=== PATIENT | female | born 1940 | race Caucasian/White ===

== ENCOUNTER 2016-10-08 16:08 | Inpatient (IN) ==
[2016-10-08] MEDS ORDERED: 0.9 % Sodium Chloride 1,000 ML IVC ONE (16:13)
--- NOTE | 2016-10-08 16:40 | Emergency Department Note ---
Disposition Clinical Impression: CRISTI (acute kidney injury), Dehydration Disposition: Admitted As Inpatient Condition: Good Referrals: NO,PCP [Primary Care Provider] - Forms: ED Satisfaction Letter Time of Disposition: 17:43 General Adult HPI - General Chief complaint: ED Recheck/Abnormal Lab/Rx Stated complaint: abd labs Time Seen by Provider: 10/08/16 16:10 Source: patient, EMS Limitations: age Nursing Notes Reviewed: Yes Vital Signs Reviewed: Yes - History of Present Illness HPI Narrative: Patient is a 75-year-old female who is at a snf in [facility] house comes in today for weakness. She was seen there yesterday she stated she had a little bit of shortness of breath this has resolved she has just been fatigued she was supposed to be sent to the snf with IV fluids for dehydration and this did not occur. They are upset and did not want to go back to [facility] so they came here. Patient is awake alert pleasant with no acute complaints at this time Pain Scale: 0 Improves with: nothing Worsens with: nothing Associated symptoms: Reports: denies other symptoms Treatments Prior to Arrival: none - Related Data Allergies Allergy/AdvReac Type Severity Reaction Status Date / Time diphenhydramine Allergy See Verified 10/08/16 16:19 [From Benadryl] Comments ibuprofen Allergy See Verified 10/08/16 16:19 Comments morphine Allergy See Verified 10/08/16 16:19 Comments sulfamethoxazole Allergy See Verified 10/08/16 16:19 [From Bactrim] Comments trimethoprim [From Bactrim] Allergy See Verified 10/08/16 16:19 Comments All systems ED: reviewed and negative except as stated. Constitutional: Reports: weakness. Denies: fever, chills Respiratory: Denies: cough Gastrointestinal: Denies: nausea, vomiting, diarrhea Past Medical History - Past Medical History Source: patient, old records reviewed, nursing notes reviewed Medical history: Reports: atrial fibrillation, CVA, DVT, GERD, renal disease, thyroid disease, TIA, other Psychiatric history: Reports: anxiety, depression, other - Social History Smoking Status: Former smoker Alcohol use: Reports: none Drug use: Reports: none Physical Exam - General Limitations: age General appearance: in no apparent distress - Head Head exam: atraumatic, normocephalic, normal inspection - Eye Eye exam: Present: normal appearance, PERRL, EOMI - Expanded Eye Exam Pupils: Left: reactive - ENT ENT exam: normal exam, normal oropharynx, mucous membranes moist - Expanded ENT Exam External ear exam: Present: normal external inspection Mouth exam: Present: normal external inspection Teeth exam: Present: normal inspection Throat exam: Present: normal inspection - Neck Neck exam: Present: normal inspection, full ROM, trachea midline - Chest Chest inspection: Present: normal inspection, symmetric chest wall rise - Respiratory Respiratory exam: Present: normal lung sounds bilaterally - Cardiovascular Cardiovascular exam: Present: regular rate, normal rhythm, normal heart sounds - Abdominal Exam Abdominal exam: Present: soft, Non-Tender. Absent: tenderness, distention, guarding, rebound, rigidity - Extremities Exam Extremities exam: Present: normal inspection, full ROM. Absent: tenderness, pedal edema - Expanded Upper Extremity Exam Shoulder exam: Present: normal inspection, full ROM Arm exam: Present: normal inspection, full ROM Elbow exam: Present: normal inspection, full ROM Forearm/Wrist exam: Present: normal inspection, full ROM Hand exam: Present: normal inspection, full ROM Vascular exam: Normal: capillary refill, radial pulse - Expanded Lower Extremity Exam Hip/Pelvis exam: Present: normal inspection, full ROM Upper leg exam: Present: normal inspection, full ROM Knee exam: Present: normal inspection, full ROM Lower leg exam: Present: normal inspection, full ROM Ankle exam: Present: normal inspection, full ROM Foot/toe exam: Present: normal inspection, full ROM Neurovascular/Tendon exam: Absent: motor deficit, sensory deficit, tendon deficit - Back Exam Back exam: Present: normal inspection, full ROM. Absent: tenderness - Neurological Exam Neurological exam: Present: alert, oriented X3 - Expanded Neurological Exam Patient oriented to: Present: person, place, time Coma Scale Eye Opening: Spontaneous Coma Scale Motor Response: Obeys Commands Coma Scale Verbal Response: Oriented Coma Scale Total: 15 - Psychiatric Psychiatric exam: Present: normal affect, normal mood - Skin Skin exam: Present: warm, dry, intact, normal color Course Vital Signs Temperature 98.4 F 10/08/16 16:10 Pulse Rate 65 10/08/16 16:10 Respiratory Rate 18 10/08/16 16:10 Blood Pressure 145/68 10/08/16 16:10 O2 Sat by Pulse Oximetry 97 10/08/16 16:10 Temperature 98.4 F 10/08/16 16:10 Pulse Rate 64 10/08/16 16:36 Respiratory Rate 18 10/08/16 16:36 Blood Pressure 115/53 10/08/16 16:36 O2 Sat by Pulse Oximetry 99 10/08/16 16:36 Oxygen Delivery Oxygen Delivery Nasal Cannula Medical Decision Making - Medical Records Medical records reviewed: Yes I reviewed the patient's medical records. - Lab Data Lab results reviewed: Yes I reviewed the patient's lab results. Result diagrams: 10/08/16 16:49 10/08/16 16:49 Lab Results 10/08/16 10/08/16 10/08/16 Range/Units 16:49 16:49 16:49 WBC 7.4 (4.3-11.1) K/mcL RBC 5.60 H (3.82-4.97) M/mcL Hgb 15.7 H (11.5-15.4) g/dL Hct 52.3 H (35.3-44.9) % MCV 93.4 (83.0-100.0) fL MCH 28.0 (28.0-33.3) pg MCHC 30.0 L (31.6-35.5) g/dL RDW 20.4 H (11.5-14.5) % Plt Count 152 (140-400) K/mcL MPV 12.6 H (9.4-12.4) fL Immature Gran % 0.7 (0-4) % Seg Neutrophils % 78.7 % Lymphocytes % 10.1 % Monocytes % 7.4 % Eosinophils % 2.4 % Basophils % 0.7 % Neutrophils # 5.8 (1.6-8.9) K/mcL Lymphocytes # 0.8 (0.6-4.6) K/mcL Monocytes # 0.6 (0.0-1.3) K/mcL Eosinophils # 0.2 (0.0-0.6) K/mcL Basophils # 0.1 (0.0-0.2) K/mcL PT 12.7 H (9.4-12.1) Seconds INR 1.2 APTT 32.9 (26.0-36.0) Seconds Sodium 140 (136-145) mEq/L Potassium 4.5 (3.5-4.5) mEq/L Chloride 105 (98-109) mEq/L Carbon Dioxide 23 (19-29) mEq/L BUN 47 H (7-20) mg/dL Creatinine 3.34 H (0.57-1.11) mg/dL Est GFR ( Amer) 16 L (> 60) Est GFR (Non-Af Amer) 13 L (> 60) BUN/Creatinine Ratio 14 (6-26) Glucose 98 (70-99) mg/dL Calculated Osmolality 302 H (280-300) Calcium 8.9 (8.6-10.8) mg/dL Total Bilirubin 1.1 (0.2-1.2) mg/dL AST 23 (5-34) Units/L ALT 14 (0-55) Units/L Alkaline Phosphatase 103 (38-126) Units/L Troponin I (0-0.03) ng/mL Serum Total Protein 8.4 H (6.0-8.3) g/dL Albumin 3.8 (3.5-5.0) g/dL Globulin 4.6 H (2.4-3.5) g/dL Albumin/Globulin Ratio 0.8 L (1.1-2.2) 10/08/ Range/Units 16:49 WBC (4.3-11.1) K/mcL RBC (3.82-4.97) M/mcL Hgb (11.5-15.4) g/dL Hct (35.3-44.9) % MCV (83.0-100.0) fL MCH (28.0-33.3) pg MCHC (31.6-35.5) g/dL RDW (11.5-14.5) % Plt Count (140-400) K/mcL MPV (9.4-12.4) fL Immature Gran % (0-4) % Seg Neutrophils % % Lymphocytes % % Monocytes % % Eosinophils % % Basophils % % Neutrophils # (1.6-8.9) K/mcL Lymphocytes # (0.6-4.6) K/mcL Monocytes # (0.0-1.3) K/mcL Eosinophils # (0.0-0.6) K/mcL Basophils # (0.0-0.2) K/mcL PT (9.4-12.1) Seconds INR APTT (26.0-36.0) Seconds Sodium (136-145) mEq/L Potassium (3.5-4.5) mEq/L Chloride (98-109) mEq/L Carbon Dioxide (19-29) mEq/L BUN (7-20) mg/dL Creatinine (0.57-1.11) mg/dL Est GFR ( Amer) (> 60) Est GFR (Non-Af Amer) (> 60) BUN/Creatinine Ratio (6-26) Glucose (70-99) mg/dL Calculated Osmolality (280-300) Calcium (8.6-10.8) mg/dL Total Bilirubin (0.2-1.2) mg/dL AST (5-34) Units/L ALT (0-55) Units/L Alkaline Phosphatase (38-126) Units/L Troponin I 0.07 H* (0-0.03) ng/mL Serum Total Protein (6.0-8.3) g/dL Albumin (3.5-5.0) g/dL Globulin (2.4-3.5) g/dL Albumin/Globulin Ratio (1.1-2.2) - Radiology Data Radiology results reviewed: Yes I reviewed the patient's radiology results.
[2016-10-08 16:54] LABS: Basophils # 0.1 K/mcL (0.0-0.2); Basophils % 0.7 %; Eosinophils # 0.2 K/mcL (0.0-0.6); Eosinophils % 2.4 %; Hematocrit 52.3 % (35.3-44.9); Hemoglobin 15.7 g/dL (11.5-15.4); Immature Granulocytes % 0.7 % (0-4); Lymphocytes # 0.8 K/mcL (0.6-4.6); Lymphocytes % 10.1 %; Mean Corpuscular Volume 93.4 fL (83.0-100.0); Mean Platelet Volume 12.6 fL (9.4-12.4); Monocytes # 0.6 K/mcL (0.0-1.3); Monocytes % 7.4 %; Neutrophils # 5.8 K/mcL (1.6-8.9); Platelet Count 152 K/mcL (140-400); Red Cell Distribution Width 20.4 % (11.5-14.5); Segmented Neutrophils % 78.7 %
[2016-10-08 16:59] LABS: INR 1.2; Prothrombin Time 12.7 Seconds (9.4-12.1)
[2016-10-08 17:13] LABS: Albumin 3.8 g/dL (3.5-5.0); Albumin/Globulin Ratio 0.8 (1.1-2.2); Bilirubin,Total 1.1 mg/dL (0.2-1.2); Calcium 8.9 mg/dL (8.6-10.8); Globulin 4.6 g/dL (2.4-3.5); Potassium 4.5 mEq/L (3.5-4.5); Total Protein 8.4 g/dL (6.0-8.3)
[2016-10-08 17:33] LABS: Activated Partial Thrombo Time 32.9 Seconds (26.0-36.0)
[2016-10-08] MEDS ORDERED: Aspirin 81 MG TAB.CHEW PO STA (17:55)
[2016-10-09] MEDS: 0.9 % Sodium Chloride 1,000 ML IVC SCH ×4 (00:25→17:28)
[2016-10-09] MEDS ORDERED: Naloxone 0.4 MG/ML INJ IVP PRN (00:48)
--- NOTE | 2016-10-09 01:00 | Internal Med History&Physical ---
Date of Encounter: 10/08/16 Time of Encounter: 23:00 Assessment and Plan (1) CRISTI (acute kidney injury) Current visit: Yes Status: Acute baseline renal function is normal; CRISTI rapidly developed and appears to be secondary to dehyration/poor po intake. Urinalysis and urine lytes remain pending. Will gently hydrate with 125 cc of .9NS/hr after initial bolus. Will hold Lasix and recheck renal function in the a.m. Hold Lisinopril at this time. Renal ultrasound and Nephrology consulted in the event that renal function continues to decline; daytime hospitalist to contact in a.m. (2) Generalized weakness Current visit: Yes Status: Acute Likely secondary to dehydration. Management as per above. Check vitamin b12, folate, TSH, vitamin D levels. PT/OT ordered for further evaluation. (3) Elevated troponin Current visit: Yes Status: Acute No chest pain. ECG reportedly unremarkable, but I cannot locate it. Elevated troponin appears to be secondary to demand ischemia/CRISTI. Will repeat troponin levels until peaked. Echo pending for elevated troponin level and history of CHF. 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 Garcia is a 75 year old female longterm resident with PMH CVA, CHF, R- BKA who presents with generalized weakness x 2-3 weeks. Patient claims that she had symptoms of the flu 2-3 weeks ago but was never treated; she claims that many of her fellow longterm residents were diagnosed with the flu. Ever since then, her appetite has markedly decreased and she has not been eating or drinking much. Had lab work done on 10/03/16 and CRE was .97. Today, CRE is >3. She states she has require assistance to the restroom (is usually able to get herself into a wheelchair and hoist herself on the commode, but lately needs assistance. She denies any focal weakness. Denies any chest pain, shortness of breath or change in urination. She denies any nausea or vomiting. Per nurse, bladder scan revealed only 75mL of urine and urine was dark brown in color. Urinalysis still pending at this time. Past Med Surg Social Fam HX - Past Medical History Medical history: atrial fibrillation, CHF, COPD, CVA, DVT, GERD, renal disease, thyroid disease, TIA, other Psychiatric history: anxiety - Past Surgical History Surgical History: cholecystectomy - Social History Smoking Status: Former smoker Alcohol use: none Drug use: none - Family History Mother Hx Family Cardiac Disorders: Yes (heart attack) Father Hx Family Neurologic Disorders: Yes (stroke) Brother Hx Family Neurologic Disorders: Yes (stroke) Internal Medicine - H&P: Meds 0.9 % Sodium Chloride 1,000 ml IV BID 10/08/16 [History] Acetaminophen [Tylenol] 650 mg PO Q4H PRN 10/08/16 [History] Albuterol Neb [Proventil Neb] 2.5 mg IH Q4HR PRN 10/08/16 [History] Ammonium Lactate 1 appl TP DAILY 10/08/16 [History] Aspirin Enteric Coated [Aspirin EC] 81 mg PO DAILY 10/08/16 [History] Clopidogrel [Plavix] 75 mg PO DAILY 10/08/16 [History] Esomeprazole Magnesium [Nexium] 40 mg PO DAILY 10/08/16 [History] Furosemide [Lasix] 20 mg PO DAILY PRN 10/08/16 [History] Gabapentin [Neurontin] 300 mg PO TID 10/08/16 [History] GuaiFENesin/Dextromethorphan [Tussin Dm Syrup] 10 ml PO Q4H PRN 10/08/16 [ History] Hydraguard 1 appl TP BID 10/08/16 [History] Hydrocortisone 1% CREAM [Cortaid] 1 appl TP BID PRN 10/08/16 [History] Iron Polysaccharide Complex [Ferrex 150] 150 mg PO DAILY 10/08/16 [History] Ketoconazole Shampoo [Nizoral Shampoo] 1 appl TP FR 10/08/16 [History] Levothyroxine [Synthroid] 50 mcg PO 0630 10/08/16 [History] Lisinopril [Zestril] 40 mg PO DAILY 10/08/16 [History] Loperamide HCl [Imodium A-D] 2 - 4 mg PO Q8H PRN MDD 12 mg 10/08/16 [History] Metoprolol XL (24 HR) Succ [Toprol XL] 12.5 mg PO DAILY 10/08/16 [History] Ondansetron HCl [Zofran] 4 mg PO Q6H PRN 10/08/16 [History] Ondansetron ODT [Zofran ODT] 4 mg SL Q4HR PRN 10/08/16 [History] Oxygen 1 each .ROUTE AD 10/08/16 [History] Pravastatin Sodium [Pravachol] 20 mg PO HS 10/08/16 [History] S.boulardii/B.coagulans/Fos [Diff-Stat 471 mg Capsule] 471 mg PO BID 10/08/16 [ History] Sertraline [Zoloft] 25 mg PO DAILY 10/08/16 [History] Sotalol [Betapace] 40 mg PO BID 10/08/16 [History] Tramadol HCl [Ultram] 50 mg PO Q6H PRN 10/08/16 [History] Tramadol HCl [Ultram] 100 mg PO Q6H PRN 10/08/16 [History] Triamcinolone Acet 0.1% CRM [Kenalog] 1 appl TP BID PRN 10/08/16 [History] Allergies diphenhydramine [From Benadryl] Allergy (Verified 10/08/16 16:19) See Comments ibuprofen Allergy (Verified 10/08/16 16:19) See Comments morphine Allergy (Verified 10/08/16 16:19) See Comments sulfamethoxazole [From Bactrim] Allergy (Verified 10/08/16 16:19) See Comments trimethoprim [From Bactrim] Allergy (Verified 10/08/16 16:19) See Comments All Systems PM: A 10-system review of systems was performed and is negative for pertinent findings except as documented above in the HPI. - Constitutional Constitutional: fatigue, weakness, no chills, no fever(s), no falls - EENT Eyes: no blurry vision - Cardiovascular Cardiovascular ROS IM: no chest pain, no dyspnea, no dyspnea on exertion - Respiratory Respiratory: no cough - Gastrointestinal Gastrointestinal: as per HPI, no abdominal pain, no change in bowel habits - Neurological Neurological ROS: as per HPI, no dizziness, no focal weakness, no lack of coordination - Constitutional Vitals: Temp Pulse Resp BP Pulse Ox 97.6 F 64 20 113/75 94 10/08/16 20:10 10/08/16 20:10 10/08/16 20:10 10/08/16 20:10 10/08/16 20:58 General appearance: Present: A&O X 3, pleasant, no acute distress, answers questions appropriately - Head Head exam: Present: atraumatic - Eye Eye exam: Present: normal appearance - ENT ENT exam: Present: mucous membranes dry - Respiratory Respiratory exam: Present: CTAB - Cardiovascular Cardiovascular exam: Present: RRR, +S1, +S2 - GI/Abdominal GI/Abdominal exam: Present: normal bowel sounds, soft. Absent: rebound, tenderness - Extremities Exam Additional comments: R-BKA and trace lower extremity edema - Neurological Exam Neurological exam: Present: alert, oriented X3 Additional comments: strength 5/5 left lower extremities, 5/5 RUE and 4/5 LUE (patient states left upper extremity is chronically weaker, not new) - Psychiatric Psychiatric exam: Present: normal affect, normal mood - Skin Additional comments: venous stasis dermatitis present left lower extremity Internal Med - H&P Results - Labs CBC & Chem 7: 10/08/16 16:49 10/08/16 16:49 Labs: Cardiac Enzymes 10/08/16 Range/Units 23:16 Troponin I 0.07 H* (0-0.03) ng/mL
[2016-10-09] MEDS ORDERED: Triamcinolone Acet 0.1% CRM 15 GM TUBE TP PRN (01:01)
[2016-10-09] MEDS ORDERED: Albuterol 2.5 MG/3 ML NEBULIZER IH PRN (01:01)
[2016-10-09 06:49] LABS: Basophils % 0.6 %; Eosinophils # 0.2 K/mcL (0.0-0.6); Eosinophils % 2.8 %; Hematocrit 47.3 % (35.3-44.9); Immature Granulocytes % 0.6 % (0-4); Lymphocytes # 0.7 K/mcL (0.6-4.6); Lymphocytes % 10.3 %; Mean Corpuscular HGB Conc 29.8 g/dL (31.6-35.5); Mean Corpuscular Volume 93.8 fL (83.0-100.0); Monocytes # 0.6 K/mcL (0.0-1.3); Monocytes % 8.8 %; Platelet Count 120 K/mcL (140-400); Red Blood Count 5.04 M/mcL (3.82-4.97); Red Cell Distribution Width 20.3 % (11.5-14.5); Segmented Neutrophils % 76.9 %
[2016-10-09 06:50] LABS: Hemoglobin 14.1 g/dL (11.5-15.4)
[2016-10-09 07:10] LABS: Albumin 3.3 g/dL (3.5-5.0); Albumin/Globulin Ratio 0.8 (1.1-2.2); Calcium 8.4 mg/dL (8.6-10.8); Chol/HDL Ratio 3.3 (0-4.9); Potassium 4.2 mEq/L (3.5-4.5); Total Protein 7.3 g/dL (6.0-8.3)
[2016-10-09 08:49] LABS: Folate 9.2 ng/mL (7.0-31.4)
[2016-10-09] MEDS: Iron Polysaccharide Complex 150 MG CAPSULE PO SCH (08:56)
[2016-10-09] MEDS: Aspirin Enteric Coated 81 MG Tablet PO SCH (08:57)
[2016-10-09] MEDS: Metoprolol XL (24 HR) Succ 25 MG TAB.ER.24H PO SCH (08:57)
[2016-10-09] MEDS ORDERED: Ammonium Lactate 30 APPL/225 GM BOTTLE TP SCH (09:00)
--- NOTE | 2016-10-09 09:57 | Nephrology Consult Note ---
Date of Encounter: 10/09/16 Time of Encounter: 09:40 Assessment and Plan (1) CRISTI (acute kidney injury) Current Visit: Yes Status: Acute Anuric CRISTI possibly 2/2 to dehydration. Creatinine improved from 3.34 to 2.66 today with IVFs. F.E.Na of 0.24% suggestive of pre-renal cause. Avoid nephrotoxins. Continue IVFs, currently on 0.9% NS @ 125ml/hr. Continue renal protective/supportive management. No indication for acute dialysis at this time. Pending renal US. Pending UA- update: concern for UTI vs contamination. Afebrile, dementia at baseline, no leukocytosis, normotensive, and normal HR. (2) Dehydration Current Visit: Yes Status: Acute See plan above. (3) Generalized weakness Current Visit: Yes Status: Acute Possibly secondary to dehydration. See above plan. (4) Vitamin D deficiency Current Visit: Yes Status: Acute Level found to be low at 5ng/ml. I do not see Vitamin D listed in home medications, would recommendation replacement with ergocalciferol 50,000unit/wk. (5) Hypothyroidism Current Visit: Yes Status: Chronic management per primary medicine service. Qualifiers: Hypothyroidism type: unspecified Qualified Code(s): E03.9 - Hypothyroidism , unspecified History of Present Illness - Reason for Consult Consult date: 10/09/16 Acute Kidney Injury Requesting physician: Gricelda Hooker - Chief Complaint Weakness - History of Present Illness Ms. Garcia is a 75 year old female that presents with ECF, pertinent PMHx CVA, CHF, and R-BKA, who presents with generalized weakness x 2-3 weeks per record. Discussing this with patient she states her memory is poor and she is unsure why she is here. Reviewing the ER report, patient agree currently with prior story of flu like symptoms 2-3 weeks ago and that since her appetite has been less; not eating or drinking much. She notes increased general weakness, requiring assistance to the restroom. Denies any chest pain, shortness of breath or change in urination. She denies any nausea or vomiting. Nephrology consulted for concerns of CRISTI with Cr reported at 0.9 prior to admission, found to be 3.34 on admission. 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 States she is unsure if she uses any NSAIDs ( ibuprofen/motrin, aleve). No tobacco or alcohol use in 10+ years. No previous encounters (inpatient or outpatient) found within system for review. Past Med Surg Social Fam HX - Past Medical History Source: nursing notes reviewed Medical history: atrial fibrillation, CHF, COPD, CVA, DVT, GERD, renal disease, thyroid disease, TIA, other Psychiatric history: anxiety - Past Surgical History Surgical History: cholecystectomy - Social History Smoking Status: Former smoker Alcohol use: none Drug use: none - Family History Mother Hx Family Cardiac Disorders: Yes (heart attack) Father Hx Family Neurologic Disorders: Yes (stroke) Brother Hx Family Neurologic Disorders: Yes (stroke) Medications and Allergies 0.9 % Sodium Chloride 1,000 ml IV BID 10/08/16 [History] Acetaminophen [Tylenol] 650 mg PO Q4H PRN 10/08/16 [History] Albuterol Neb [Proventil Neb] 2.5 mg IH Q4HR PRN 10/08/16 [History] Ammonium Lactate 1 appl TP DAILY 10/08/16 [History] Aspirin Enteric Coated [Aspirin EC] 81 mg PO DAILY 10/08/16 [History] Clopidogrel [Plavix] 75 mg PO DAILY 10/08/16 [History] Esomeprazole Magnesium [Nexium] 40 mg PO DAILY 10/08/16 [History] Furosemide [Lasix] 20 mg PO DAILY PRN 10/08/16 [History] Gabapentin [Neurontin] 300 mg PO TID 10/08/16 [History] GuaiFENesin/Dextromethorphan [Tussin Dm Syrup] 10 ml PO Q4H PRN 10/08/16 [ History] Hydraguard 1 appl TP BID 10/08/16 [History] Hydrocortisone 1% CREAM [Cortaid] 1 appl TP BID PRN 10/08/16 [History] Iron Polysaccharide Complex [Ferrex 150] 150 mg PO DAILY 10/08/16 [History] Ketoconazole Shampoo [Nizoral Shampoo] 1 appl TP FR 10/08/16 [History] Levothyroxine [Synthroid] 50 mcg PO 0630 10/08/16 [History] Lisinopril [Zestril] 40 mg PO DAILY 10/08/16 [History] Loperamide HCl [Imodium A-D] 2 - 4 mg PO Q8H PRN MDD 12 mg 10/08/16 [History] Metoprolol XL (24 HR) Succ [Toprol XL] 12.5 mg PO DAILY 10/08/16 [History] Ondansetron HCl [Zofran] 4 mg PO Q6H PRN 10/08/16 [History] Ondansetron ODT [Zofran ODT] 4 mg SL Q4HR PRN 10/08/16 [History] Oxygen 1 each .ROUTE AD 10/08/16 [History] Pravastatin Sodium [Pravachol] 20 mg PO HS 10/08/16 [History] S.boulardii/B.coagulans/Fos [Diff-Stat 471 mg Capsule] 471 mg PO BID 10/08/16 [ History] Sertraline [Zoloft] 25 mg PO DAILY 10/08/16 [History] Sotalol [Betapace] 40 mg PO BID 10/08/16 [History] Tramadol HCl [Ultram] 50 mg PO Q6H PRN 10/08/16 [History] Tramadol HCl [Ultram] 100 mg PO Q6H PRN 10/08/16 [History] Triamcinolone Acet 0.1% CRM [Kenalog] 1 appl TP BID PRN 10/08/16 [History] Allergies diphenhydramine [From Benadryl] Allergy (Verified 10/08/16 16:19) See Comments ibuprofen Allergy (Verified 10/08/16 16:19) See Comments morphine Allergy (Verified 10/08/16 16:19) See Comments sulfamethoxazole [From Bactrim] Allergy (Verified 10/08/16 16:19) See Comments trimethoprim [From Bactrim] Allergy (Verified 10/08/16 16:19) See Comments Review of Systems ROS unobtainable: due to mental status (unable to recall recent symptoms.) Constitutional: fatigue, weakness, other (decreased appetite) Nose, mouth and throat: no dizziness, no dysphagia Cardiovascular: no chest pain, no dyspnea, no syncope Respiratory: no cough, no dyspnea Gastrointestinal: no abdominal pain Neurological: memory loss, weakness Exam - Vital Signs Vital signs: Initial Vital Signs Temp Pulse Resp BP Pulse Ox 98.4 F 65 18 145/68 97 10/08/16 16:10 10/08/16 16:10 10/08/16 16:10 10/08/16 16:10 10/08/16 16:10 Vital Signs - Last 8 Hours Temp Pulse Resp BP Pulse Ox 10/09/16 08:21 97.9 F 10/09/16 08:11 95.3 F L 10/09/16 07:47 73 20 174/77 94 10/09/16 05:27 62 18 129/66 95 Intake and Output 10/08/16 10/09/16 10/09/16 23:59 07:59 15:59 Intake Total 1120 / 1120 Balance 1120 / 1120 Intake: IV Fluids 1000 / 1000 0.9 % Sodium Chloride 1, 1000 / 1000 000 ML @ 125 mls/hr IVC . Q8H [facility] Rx#:[id number] Oral 120 / 120 Other: Meal Breakfast Percent of Meal Consumed 50% # Voids 1 - General Appearance General appearance: well-developed, appears started age EENT: ATNC, mucous membranes moist, hearing intact, vision intact Neck: supple Respiratory: clear Cardiology: no edema, regular rate, regular rhythm Gastrointestinal: no tenderness, no guarding, no organomegaly Integumentary: no rash, warm and dry Neurologic: no focal deficit Additional Comments: awake and alert Musculoskeletal: no erythema, no cyanosis Additional Comments: right BKA, no signs of infection, no tenderness, no erythema or induration. Psychiatric: mood/affect appropriate, cooperative Results - Lab Results 10/09/16 06:40 10/09/16 06:40 Most recent lab results Calcium 8.4 mg/dL (8.6-10.8) L 10/09/16 06:40 Consult Discharge Plan - Plan Referrals: NO,PCP [Primary Care Provider] - (Patient from [facility] and will follow up with [facility] PCP)
--- NOTE | 2016-10-09 10:14 | Internal Med Progress Note ---
Date of Encounter: 10/09/16 Time of Encounter: 09:45 - Assessment and plan (1) CRISTI (acute kidney injury) Current Visit: Yes Status: Acute Assessment and plan: Likely prerenal secondary to dehydration will continue IV fluids renal function improved from previous day follow up renal US Renal consultation requested. (2) Dehydration Current Visit: Yes Status: Acute Assessment and plan: plan as listed above (3) Generalized weakness Current Visit: Yes Status: Acute Assessment and plan: Likely secondary to decreased PO intake pt tolerating PO intake well at this time will obtain PT eval (4) Elevated troponin Current Visit: Yes Status: Acute Assessment and plan: likely secondary to demand ischemia/CRISTI will trend three serial TNI no EKG changes reported chest pain free will continue to monitor (5) DVT prophylaxis Current Visit: Yes Status: Acute Assessment and plan: Heparin SQ (6) Hypothyroidism Current Visit: Yes Status: Chronic Assessment and plan: continue Levothyroxine Qualifiers: Hypothyroidism type: unspecified Qualified Code(s): E03.9 - Hypothyroidism , unspecified (7) Tenderness of lower extremity Current Visit: Yes Status: Acute Assessment and plan: Will obtain venous doppler to rule out DVT Qualifiers: Laterality: left Qualified Code(s): M79.605 - Pain in left leg - Subjective Interval history: Patient seen and examined at bedside. Resting comfortably in bed and reports of feeling better since her admission. States she had difficulty breathing prior to her arrival to the ER however it has improved at this time. Denies any other discomfort at this time. Noted to have calf tenderness on palpation of left lower extremity. - Constitutional Vitals: Temp Pulse Resp BP Pulse Ox 97.9 F 73 20 174/77 94 10/09/16 08:21 10/09/16 07:47 10/09/16 07:47 10/09/16 07:47 10/09/16 07:47 General appearance: Present: A&O X 3, pleasant, no acute distress, answers questions appropriately - Head Head exam: Present: atraumatic, normocephalic - Eye Eye exam: Present: normal appearance, conjuntiva pink, sclera anicteric - Respiratory Respiratory exam: Present: decreased breath sounds. Absent: respiratory distress, wheezes - Cardiovascular Cardiovascular exam: Present: RRR, +S1, +S2. Absent: diastolic murmur, gallop, rubs, systolic murmur - GI/Abdominal GI/Abdominal exam: Present: normal bowel sounds, soft, no peritoneal signs. Absent: distended, tenderness - Extremities Exam Additional comments: s/p right BKA, mild LLE edema, LLE calf tenderness - Neurological Exam Neurological exam: Present: alert, oriented X3 - Psychiatric Psychiatric exam: Present: normal affect, normal mood Internal Medicine: Result - Labs CBC & Chem 7: 10/09/16 06:40 10/09/16 06:40 Labs: Short CBC 10/09/16 Range/Units 06:40 WBC 6.5 (4.3-11.1) K/mcL Hgb 14.1 D (11.5-15.4) g/dL Hct 47.3 H (35.3-44.9) % Plt Count 120 L (140-400) K/mcL Neutrophils # 5.0 (1.6-8.9) K/mcL BMP 10/09/16 06:40 Sodium 140 Potassium 4.2 Chloride 109 Carbon Dioxide 22 BUN 48 H Creatinine 2.66 H Glucose 98 Calcium 8.4 L Liver Function 10/09/16 Range/Units 06:40 Total Bilirubin 1.0 (0.2-1.2) mg/dL AST 18 (5-34) Units/L ALT 11 (0-55) Units/L Alkaline Phosphatase 88 (38-126) Units/L Albumin 3.3 L (3.5-5.0) g/dL - ABG Interpretation ABG results: PT/INR, D-dimer PT 12.7 Seconds (9.4-12.1) H 10/08/16 16:49 Consult Discharge Plan - Plan Referrals: NO,PCP [Primary Care Provider] -
[2016-10-09] MEDS ORDERED: Perflutren Lipid Microsphere 1.3 ML in 0.9 % Sodium Chloride 8.7 ML IVP ONE (11:36)
--- NOTE | 2016-10-09 12:59 | ECHO - Doppler Report ---
Name: Anastacia Garcia Date of Study: 10/09/2016 Date: 1940 Ht: 66.0 in Medical Record#: [id number] Age: 75 Wt: 167.0 lb Gender: Female BSA: 1.85 Order #: [id number] Location: [facility] Room #: 2A16 Reading Physician: Slim James DO, [facility] Down Filler: Alexis Blanco Ordering Physician: Gricelda Hooker MD Primary Physician: Indications: Congestive heart failure, Shortness of breath Impressions: LVEF 55%. Normal LV chamber size and function. Mild concentric left ventricular hypertrophy. Mild left ventricular diastolic dysfunction. Atypical septal motion of unclear etiology. Grossly, the right ventricle appeared mildly dilated with mildly reduced funtion. Moderately dilated left atrium. Severely dilated right atrium. Moderately calcified aortic valve leaflets. Mild aortic regurgitation. Mild aortic stenosis suggested by Doppler. Mild to moderate tricuspid regurgitation. No pulmonary hypertension. Left Ventricular Wall Motion: Rest Echo Findings All wall segments showed normal motion. Findings: Study Quality * Technically adequate exam. ECG Findings * Normal sinus rhythm. Left Ventricle * LVEF 55%. * Normal LV chamber size and function. * Mild concentric left ventricular hypertrophy. * Mild left ventricular diastolic dysfunction. * Atypical septal motion of unclear etiology. Right Ventricle * Grossly, the right ventricle appeared mildly dilated with mildly reduced funtion. Left Atrium * Moderately dilated left atrium. Right Atrium * Severely dilated right atrium. Interatrial Septum * Interatrial septum not well evaluated. Aortic Valve * Trileaflet aortic valve. * Moderately calcified aortic valve leaflets. * Mild aortic regurgitation. * Mild aortic stenosis suggested by Doppler. Mitral Valve * Moderately thickened mitral valve leaflets. * Moderate posterior mitral annular calcification * Trace mitral regurgitation. * No mitral stenosis. Tricuspid Valve * Normal tricuspid valve structure. * Mild to moderate tricuspid regurgitation. * No pulmonary hypertension. Pulmonic Valve * Pulmonic valve not well visualized. Aorta * Normally sized aortic root. Pericardium * The pericardium appears normal. IVC * Normal IVC dimensions and inspiratory collapse. Pulmonary Artery * Pulmonary artery not well visualized. History Hypertension Contrast: Definity 1.3 ml in 8.7 ml of saline 4 ml. Measurements: BP: 174/ 77 2D Normal Values IVSd: 1.30 cm 0.6 - 1.0 cm LVIDd: 5.18 cm 3.7 - 5.6 cm LVPWd: 1.30 cm 0.6 - 1.1 cm LVIDs: 3.31 cm 1.5 - 3.6 cm AO: 2.50 cm < 4.0 cm LA: 4.40 cm 2.0 - 4.0cm %FS: 36.10 cm >25 % LVOT Diam: 1.85 cm LA volume: 68 Mitral Valve Peak E:.80 m/sec Peak A:1.40 m/sec E/A Ratio:0.6 Peak E' Lat Vini:7.07 cm/s Peak E' Med Vini:5.22 cm/s E/E' Lat Ratio:11.2 E/E' Med Ratio:15.2 LVOT Peak Vini:.96 m/sec Mean Vini:.61 m/sec Peak Grad:4.00 mmHg Mean Grad:2.00 mmHg Aortic Valve Peak Vini:2.13 m/sec Mean Vini:1.31 m/sec Peak Grad:18.00 mmHg Mean Grad:8.50 mmHg Valve Area:1.34 cm2 AI pressure Half-time: 387.00 msec Tricuspid Valve TV Regurg Peak Grad: 16.00mmHg TV Regurg Peak Vini: 1.99m/sec Updated by Slim James DO, EVELINE, LALA MARIO on 10/09/2016 12:52:14 PM electronically signed on 10/09/2016 12:54:12 PM with status of Final Wall Motion Raman: 1=Normal, 2=Hypokinesis, 3=Akinesis, 4=Dyskinesis, 5=Aneurysmal, 6=Hyperkinetic, X=Not Visualized (Blank)=Missing
[2016-10-09 13:22] LABS: Bilirubin,Urine Small (Negative); Blood,Urine Negative (Negative); Color,Urine Dark Yellow (Yellow); Glucose,Urine (UA) Normal (Normal); Ketones,Urine Trace mg/dL (Negative); Leukocyte Esterase,Urine Large (Negative); Nitrite,Urine Negative (Negative); PH,Urine 5.5 pH Units (5.0-8.0); Protein,Urine 30 mg/dL (Neg-Trace); Specific Gravity,Urine 1.024 (1.010-1.025); Urobilinogen,Urine Normal (Normal)
[2016-10-09 13:24] LABS: Hyaline Casts,Urine Few per lpf (None-Few); Squamous Epithelial Cell,Urine Many per lpf (None-Few); WBC,Urine 50-100 per hpf (0-3)
[2016-10-09 13:25] LABS: Clarity,Urine Slightly Hazy (Clear)
[2016-10-09 13:40] LABS: RBC,Urine 0-3 per hpf (0-3); Yeast,Urine Few per hpf (None Seen)
[2016-10-09 13:41] LABS: Bacteria,Urine Moderate per hpf (None-Few)
[2016-10-09] MEDS ORDERED: *HR* Heparin 5,000 UNIT/ML VIAL SQ SCH (18:00)
--- NOTE | 2016-10-09 22:39 | Event Note ---
Date of Encounter: 10/09/16 Time of Encounter: 22:37 called by pt's nurse that doppler ordered earlier came back as positive for DVT in the left lower extremity, we will d/c SC heparin DVT prophylaxis and start weight based therapeutic dose of Lovenox until review by primary team regarding usp anticoagulation options.
[2016-10-10] MEDS: 0.9 % Sodium Chloride 1,000 ML IVC SCH ×3 (00:09→19:57)
[2016-10-10] MEDS: *HR* Enoxaparin 40 MG/0.4 ML SYRINGE SQ SCH ×2 (00:09→11:34)
[2016-10-10 05:53] LABS: Calcium 8.3 mg/dL (8.6-10.8); Magnesium 1.9 mg/dL (1.6-2.6); Phosphorous 2.9 mg/dL (2.3-4.7); Potassium 4.1 mEq/L (3.5-4.5)
[2016-10-10 05:59] LABS: Basophils % 0.5 %; Eosinophils # 0.2 K/mcL (0.0-0.6); Eosinophils % 3.5 %; Hematocrit 43.6 % (35.3-44.9); Hemoglobin 13.3 g/dL (11.5-15.4); Immature Granulocytes % 0.6 % (0-4); Lymphocytes # 0.6 K/mcL (0.6-4.6); Lymphocytes % 10.1 %; Mean Corpuscular HGB Conc 30.5 g/dL (31.6-35.5); Mean Corpuscular Hemoglobin 28.6 pg (28.0-33.3); Mean Corpuscular Volume 93.8 fL (83.0-100.0); Mean Platelet Volume 13.2 fL (9.4-12.4); Monocytes # 0.5 K/mcL (0.0-1.3); Monocytes % 8.3 %; Neutrophils # 4.8 K/mcL (1.6-8.9); Platelet Count 113 K/mcL (140-400); Red Blood Count 4.65 M/mcL (3.82-4.97); Red Cell Distribution Width 20.1 % (11.5-14.5)
[2016-10-10] MEDS: Metoprolol XL (24 HR) Succ 25 MG TAB.ER.24H PO SCH (08:59)
[2016-10-10] MEDS: Aspirin Enteric Coated 81 MG Tablet PO SCH (08:59)
[2016-10-10] MEDS: Iron Polysaccharide Complex 150 MG CAPSULE PO SCH (08:59)
--- NOTE | 2016-10-10 11:28 | Nephrology Progress Note ---
Date of Encounter: 10/10/16 Time of Encounter: 10:50 - Assessment and Plan (1) CRISTI (acute kidney injury) Current Visit: Yes Status: Acute Nonoliguric acute kidney injury, appears prerenal. Creatinine continues to improve. Renal US impression: Atrophic right kidney. Normal left kidney. Volume resuscitation using 0.9 normal saline. Continue to follow a renal protective strategy with avoidance of nephrotoxic medications Strict I's and O's Daily weights Dosing of medications by GFR. (2) Dehydration Current Visit: Yes Status: Acute See plan above. (3) Generalized weakness Current Visit: Yes Status: Acute Possibly 2/2 to dehydration or deconditioning. See plan above. (4) Vitamin D deficiency Current Visit: Yes Status: Acute Level found to be low at 5ng/ml. I do not see Vitamin D listed in home medications, would recommendation replacement with ergocalciferol 50,000unit/wk. (5) Hypothyroidism Current Visit: Yes Status: Chronic management per primary medicine service. Qualifiers: Hypothyroidism type: unspecified Qualified Code(s): E03.9 - Hypothyroidism , unspecified (6) Acute delirium Current Visit: Yes Status: Acute Patient admits to dementia with memory loss at baseline, though patient appeared more delirious today with gazing off and losing focus during questioning. (7) DVT (deep venous thrombosis) Current Visit: Yes Status: Acute management per primary medicine service. Patient started on lovenox. Qualifiers: DVT location: lower extremity Affected thrombotic vein of extremity: unspecified vein of extremity Laterality: left Chronicity: acute Qualified Code(s): I82.402 - Acute embolism and thrombosis of unspecified deep veins of left lower extremity Subjective Principal diagnosis: CRISTI, weakness Interval history: Patient slumped over in bed sleeping, patient easily arousable. I was able to help reposition patient. She states she is tired, but denies any acute distress or aliments. Objective - Vital Signs Vital signs: Vital Signs Temp Pulse Resp BP Pulse Ox 10/10/16 07:12 98.4 F 69 20 165/86 96 10/10/16 03:20 97.5 F L 66 18 153/78 96 10/10/16 00:16 98.1 F 69 17 152/83 94 10/09/16 21:40 98 10/09/16 21:18 97.6 F 67 16 128/60 98 10/09/16 15:46 97.4 F L 66 18 131/75 96 Intake and Output 10/09/16 10/10/16 10/10/16 23:59 07:59 15:59 Intake Total 1365 / 1365 1000 / 1000 100 / 100 Output Total 400 / 400 0 / 0 Balance 1365 / 1365 600 / 600 100 / 100 Intake: IV Fluids 865 / 865 1000 / 1000 0.9 % Sodium Chloride 1, 865 / 865 1000 / 1000 000 ML @ 125 mls/hr IVC . Q8H [facility]CO Rx#:[id number] Oral 500 / 500 100 / 100 Output: Urine 0 / 0 Straight Cath 400 / 400 Other: Meal Breakfast Percent of Meal Consumed 20% Weight 76.8 kg Patient Weight 10/10/16 23:59 Weight 76.8 kg - General Appearance General appearance: Present: well-developed, appears started age, frail EENT: Present: ATNC, mucous membranes moist, hearing intact, vision intact Neck: Present: supple Respiratory: Present: clear Cardiology: Present: no edema, regular rate, regular rhythm Gastrointestinal: Present: no tenderness, no guarding Integumentary: Present: no rash, warm and dry Neurologic: Present: no focal deficit, confused (answers questioning appropriately, poor memory/recall, staring off more today, more easily distracted.) Additional Comments: awake and alert Musculoskeletal: Present: no erythema, no cyanosis Additional Comments: right BKA, no signs of infection, tenderness, erythema, or induration. Psychiatric: Present: mood/affect appropriate, cooperative - Lab 10/10/16 05:30 10/10/16 05:30 Most recent lab results Calcium 8.3 mg/dL (8.6-10.8) L 10/10/16 05:30 Phosphorus 2.9 mg/dL (2.3-4.7) 10/10/16 05:30 Magnesium 1.9 mg/dL (1.6-2.6) 10/10/16 05:30 Urine Creatinine 196 mg/dL 10/09/16 12:40 Urine Sodium 25.0 mEq/L 10/09/16 12:40 Consult Discharge Plan - Plan Referrals: NO,PCP [Primary Care Provider] - (Patient from [facility] and will follow up with [facility] PCP)
--- NOTE | 2016-10-10 13:57 | Venous Imaging Report ---
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 Normal contralateral common femoral vein. Recommendations: Test completed on 10/09/2016 at 10:06:00 pm. Critical findings reported to KARLOS Kaiser by phone at 10:15:00 pm on 10/09/2016 by Kim Nowak. Findings Prior Study: No prior study available for comparison. Lower Extremity Venous Duplex Side Vein Compress Spontaneous Flow Augment Diameter (cm) Depth (cm) Left Distal Iliac None Yes Phasic Yes Left Common Femoral None Yes Phasic Yes Left Superficial Femoral None Yes Phasic Yes Left Popliteal Partial Yes Phasic Yes Left Posterior Tibial Normal Yes Phasic Yes Left Peroneal Normal Yes Phasic Yes Left Saphenofemoral Junction Normal Yes Phasic Yes Left Great Saphenous Normal Yes Phasic Yes Left Lesser Saphenous Normal Yes Phasic Yes Right Common Femoral Normal Yes Phasic Yes Updated by Kody Interiano MD on 10/10/2016 1:51:49 PM electronically signed on 10/10/2016 1:52:09 PM with status of Final
[2016-10-10] MEDS ORDERED: Acetaminophen 325 MG TABLET PO ONE (14:31)
--- NOTE | 2016-10-10 15:05 | Internal Med Progress Note ---
Date of Encounter: 10/10/16 Time of Encounter: 15:03 - Assessment and plan (1) DVT (deep venous thrombosis) Current Visit: Yes Status: Acute Assessment and plan: Acute LLE DVT Started on therapeutic dose Lovenox given improvement in renal function Will closely monitor renal function Hematology consultation requested patient would likely benefit from NOAC agents (Eliquis)-will await hematology input prior to initiation Qualifiers: DVT location: lower extremity Affected thrombotic vein of extremity: unspecified vein of extremity Laterality: left Chronicity: acute Qualified Code(s): I82.402 - Acute embolism and thrombosis of unspecified deep veins of left lower extremity (2) CRISTI (acute kidney injury) Current Visit: Yes Status: Acute Assessment and plan: Likely prerenal secondary to dehydration and urinary outlet obstruction given her urinary retention. Will do a trial of Flomax will continue IV fluids renal function significantly improved from previous day Renal US: Atrophic right kidney and normal left kidney Renal consultation appreciated (3) Dehydration Current Visit: Yes Status: Acute Assessment and plan: plan as listed above (4) Generalized weakness Current Visit: Yes Status: Acute Assessment and plan: Likely secondary to decreased PO intake pt tolerating PO intake well at this time Pt refused Physical therapy eval (5) Elevated troponin Current Visit: Yes Status: Acute Assessment and plan: likely secondary to demand ischemia/CRISTI will trend three serial TNI no EKG changes reported chest pain free will continue to monitor (6) DVT prophylaxis Current Visit: Yes Status: Acute Assessment and plan: anticoagulated with lovenox (7) Hypothyroidism Current Visit: Yes Status: Chronic Assessment and plan: continue Levothyroxine Qualifiers: Hypothyroidism type: unspecified Qualified Code(s): E03.9 - Hypothyroidism , unspecified - Subjective Interval history: Patient seen and examined at bedside. Resting in bed and denies any complains at this time. Reported to have urinary retention requiring straight catheterization. Bladder scan reports of a 200cc post voidal volume. Patient continues to refuse santoyo placement but is in agreement to straight catheterization. - Constitutional Vitals: Temp Pulse Resp BP Pulse Ox 96.8 F L 77 14 195/92 97 10/10/16 14:34 10/10/16 14:34 10/10/16 14:34 10/10/16 14:34 10/10/16 14:34 General appearance: Present: A&O X 3, pleasant, no acute distress, answers questions appropriately - Head Head exam: Present: atraumatic, normocephalic - Eye Eye exam: Present: normal appearance, conjuntiva pink, sclera anicteric - Respiratory Respiratory exam: Present: CTAB. Absent: accessory muscle use, rales, rhonchi, wheezes - Cardiovascular Cardiovascular exam: Present: RRR, +S1, +S2. Absent: diastolic murmur, gallop, rubs, systolic murmur - GI/Abdominal GI/Abdominal exam: Present: normal bowel sounds, soft, no peritoneal signs. Absent: distended, tenderness - Extremities Exam Additional comments: s/p right BKA, mild LLE edema, LLE calf tenderness - Neurological Exam Neurological exam: Present: alert - Psychiatric Psychiatric exam: Present: normal affect, normal mood Internal Medicine: Result - Labs CBC & Chem 7: 10/10/16 05:30 10/10/16 05:30 Labs: Short CBC 10/10/16 Range/Units 05:30 WBC 6.2 (4.3-11.1) K/mcL Hgb 13.3 (11.5-15.4) g/dL Hct 43.6 (35.3-44.9) % Plt Count 113 L (140-400) K/mcL Neutrophils # 4.8 (1.6-8.9) K/mcL BMP 10/10/16 05:30 Sodium 142 Potassium 4.1 Chloride 114 H Carbon Dioxide 18 L BUN 39 H Creatinine 1.38 H Glucose 92 Calcium 8.3 L - ABG Interpretation ABG results: PT/INR, D-dimer PT 12.7 Seconds (9.4-12.1) H 10/08/16 16:49 - Impressions Impressions Retroperitoneum Ultrasound 10/09/16 16:00 IMPRESSION: Atrophic right kidney. Normal left kidney D/ / Matt Haeny MD / Matt Haney MD Interpreting Provider: Matt Haney MD Consult Discharge Plan - Plan Referrals: NO,PCP [Primary Care Provider] - (Patient from [facility] and will follow up with [facility] PCP)
[2016-10-10] MEDS: amLODIPine 5 MG TABLET PO SCH (15:16)
--- NOTE | 2016-10-10 17:46 | Oncology Inp Consult Note ---
Date of Encounter: 10/11/16 Time of Encounter: 17:42 Assessment and Plan (1) CRISTI (acute kidney injury) Status: Acute Assessment and plan: Likely from dehydration. Her renal function is improving. I am not sure of her baseline renal function assay have no comparison from before (2) DVT (deep venous thrombosis) Status: Acute Assessment and plan: Possible DVT elevated d-dimer. But the actual venous Doppler results showed no evidence of DVT. Her risk factors include lack of activity. Currently on Lovenox 80 mg subcutaneous twice a day At this time recommend stopping all anticoagulation will continue to watch her urine If she develops DVT in the future would recommend Elequis 2.5 mg by mouth twice a day. Jerrod Canas communicated her doppler results to Dr. Tariq Qualifiers: Qualified Code(s): I82.402 - Acute embolism and thrombosis of unspecified deep veins of left lower extremity - Data of Consult Requesting Physician: Hue Tariq MD Primary Care Provider: PCP NO - Consult Narrative Reason for consult: DVT History of present illness: Ms. Garcia is a 75 year old [place] [facility] with history of CVA and CHF was hospitalized after dehydration and acute kidney injury. Apparently she had some flulike symptoms before hospitalization Creatinine was 3.341 admission 10/08/2016 and improved to 1.3 with hydration. Further improved to 0.8. Nephrology is involved Left lower extremity tenderness followed by a Doppler showed no evidence of deep or superficial venous thrombosis 10/09/2016. Apparently the preliminary report suggested possible DVT Currently getting Lovenox 1 mg per KG (80 mg) subcutaneous twice a day. We will recommend stopping anticoagulation at this time. D-dimer elevated at 2100 on 10/11/2016 Echocardiogram on 10/09/2016 showed left ventricle ejection fraction 55% normal LV same breast size and function. Septal motion. Left ventricle or diastolic dysfunction. Moderately calcified aortic valve leaflets with mild aortic regurgitation She had a mild troponin peak of 0.07 was considered from demand ischemia. Acute kidney injury may have played a role as well Past Med Surg Social Fam HX - Past Medical History Medical history: atrial fibrillation, CHF, COPD, CVA, DVT, GERD, renal disease, thyroid disease, TIA, other Psychiatric history: anxiety - Past Surgical History Surgical History: cholecystectomy - Social History Smoking Status: Former smoker Alcohol use: none Drug use: none - Family History Mother Hx Family Cardiac Disorders: Yes (heart attack) Father Hx Family Neurologic Disorders: Yes (stroke) Brother Hx Family Neurologic Disorders: Yes (stroke) Medications and Allergies 0.9 % Sodium Chloride 1,000 ml IV BID 10/08/16 [History] Acetaminophen [Tylenol] 650 mg PO Q4H PRN 10/08/16 [History] Albuterol Neb [Proventil Neb] 2.5 mg IH Q4HR PRN 10/08/16 [History] Ammonium Lactate 1 appl TP DAILY 10/08/16 [History] Aspirin Enteric Coated [Aspirin EC] 81 mg PO DAILY 10/08/16 [History] Clopidogrel [Plavix] 75 mg PO DAILY 10/08/16 [History] Esomeprazole Magnesium [Nexium] 40 mg PO DAILY 10/08/16 [History] Furosemide [Lasix] 20 mg PO DAILY PRN 10/08/16 [History] Gabapentin [Neurontin] 300 mg PO TID 10/08/16 [History] GuaiFENesin/Dextromethorphan [Tussin Dm Syrup] 10 ml PO Q4H PRN 10/08/16 [ History] Hydraguard 1 appl TP BID 10/08/16 [History] Hydrocortisone 1% CREAM [Cortaid] 1 appl TP BID PRN 10/08/16 [History] Iron Polysaccharide Complex [Ferrex 150] 150 mg PO DAILY 10/08/16 [History] Ketoconazole Shampoo [Nizoral Shampoo] 1 appl TP FR 10/08/16 [History] Levothyroxine [Synthroid] 50 mcg PO 0630 10/08/16 [History] Lisinopril [Zestril] 40 mg PO DAILY 10/08/16 [History] Loperamide HCl [Imodium A-D] 2 - 4 mg PO Q8H PRN MDD 12 mg 10/08/16 [History] Metoprolol XL (24 HR) Succ [Toprol XL] 12.5 mg PO DAILY 10/08/16 [History] Ondansetron HCl [Zofran] 4 mg PO Q6H PRN 10/08/16 [History] Ondansetron ODT [Zofran ODT] 4 mg SL Q4HR PRN 10/08/16 [History] Oxygen 1 each .ROUTE AD 10/08/16 [History] Pravastatin Sodium [Pravachol] 20 mg PO HS 10/08/16 [History] S.boulardii/B.coagulans/Fos [Diff-Stat 471 mg Capsule] 471 mg PO BID 10/08/16 [ History] Sertraline [Zoloft] 25 mg PO DAILY 10/08/16 [History] Sotalol [Betapace] 40 mg PO BID 10/08/16 [History] Tramadol HCl [Ultram] 50 mg PO Q6H PRN 10/08/16 [History] Tramadol HCl [Ultram] 100 mg PO Q6H PRN 10/08/16 [History] Triamcinolone Acet 0.1% CRM [Kenalog] 1 appl TP BID PRN 10/08/16 [History] Allergies diphenhydramine [From Benadryl] Allergy (Verified 10/08/16 16:19) See Comments ibuprofen Allergy (Verified 10/08/16 16:19) See Comments morphine Allergy (Verified 10/08/16 16:19) See Comments sulfamethoxazole [From Bactrim] Allergy (Verified 10/08/16 16:19) See Comments trimethoprim [From Bactrim] Allergy (Verified 10/08/16 16:19) See Comments Review of systems: GENERAL: Lethargic Mental Status: Affect appropriate for circumstances HEENT: Sclerae anicteric. No mucositis or thrush. No other oral or pharyngeal lesions or erythema. Skin: No rashes or petechiae. No evidence of skin malignancy Lymph nodes: No cervical, supraclavicular, axillary, or inguinal adenopathy. Lungs: Clear to auscultation and percussion bilaterally. Cardiovascular: Regular rate and rhythm. No gallops, murmurs, or rubs. Abdomen: Soft, nontender; no organomegaly or masses palpable. Extremities: Right below-knee amputation Neurologic: Alert, cranial nerves II-XII intact; normal gait; no focal weakness or sensory abnormalities. Oncology - Exam - Constitutional Vitals: Temp Pulse Resp BP Pulse Ox 96.8 F L 77 14 195/92 97 10/10/16 14:34 10/10/16 14:34 10/10/16 14:34 10/10/16 14:34 10/10/16 14:34 Exam: GENERAL: Alert and oriented, well appearing. Your history and Mental Status: Affect appropriate for circumstances HEENT: Sclerae anicteric. No mucositis or thrush. No other oral or pharyngeal lesions or erythema. Skin: No rashes or petechiae. No evidence of skin malignancy Lymph nodes: No cervical, supraclavicular, axillary, or inguinal adenopathy. Lungs: Clear to auscultation and percussion bilaterally. Cardiovascular: Regular rate and rhythm. No gallops, murmurs, or rubs. Abdomen: Soft, nontender; no organomegaly or masses palpable. Extremities: Left lower extremity mild tenderness but no erythema Neurologic: Alert, cranial nerves II-XII intact; normal gait; no focal weakness or sensory abnormalities. Oncology - Results - Labs Labs: Short CBC 10/10/16 Range/Units 05:30 WBC 6.2 (4.3-11.1) K/mcL Hgb 13.3 (11.5-15.4) g/dL Hct 43.6 (35.3-44.9) % Plt Count 113 L (140-400) K/mcL Neutrophils # 4.8 (1.6-8.9) K/mcL BMP 10/10/16 05:30 Sodium 142 Potassium 4.1 Chloride 114 H Carbon Dioxide 18 L BUN 39 H Creatinine 1.38 H Glucose 92 Calcium 8.3 L Consult Discharge Plan - Plan Referrals: NO,PCP [Primary Care Provider] - (Patient from [facility] and [facility])
[2016-10-10] MEDS: Nystatin POWDER 30 GM BOTTLE TP SCH (20:00)
[2016-10-10] MEDS ORDERED: *HR* Enoxaparin 80 MG/0.8 ML SYRINGE SQ SCH (22:37)
[2016-10-11] MEDS: *HR* Enoxaparin 40 MG/0.4 ML SYRINGE SQ SCH (00:01)
[2016-10-11 04:57] LABS: Basophils % 0.7 %; Eosinophils # 0.2 K/mcL (0.0-0.6); Eosinophils % 3.4 %; Hematocrit 42.6 % (35.3-44.9); Immature Granulocytes % 0.7 % (0-4); Lymphocytes # 0.6 K/mcL (0.6-4.6); Lymphocytes % 11.4 %; Mean Corpuscular HGB Conc 30.5 g/dL (31.6-35.5); Mean Corpuscular Hemoglobin 28.4 pg (28.0-33.3); Mean Corpuscular Volume 93.2 fL (83.0-100.0); Mean Platelet Volume 13.8 fL (9.4-12.4); Monocytes # 0.5 K/mcL (0.0-1.3); Monocytes % 8.7 %; Neutrophils # 4.2 K/mcL (1.6-8.9); Platelet Count 109 K/mcL (140-400); Red Blood Count 4.57 M/mcL (3.82-4.97); Red Cell Distribution Width 19.9 % (11.5-14.5); Segmented Neutrophils % 75.1 %
[2016-10-11 05:04] LABS: BUN/Creatinine Ratio 31 (6-26); Calcium 8.5 mg/dL (8.6-10.8); Carbon Dioxide 17 mEq/L (19-29); Chloride 117 mEq/L (98-109); Glucose 83 mg/dL (70-99); Magnesium 1.9 mg/dL (1.6-2.6); Osmolality,Calculated 304 (280-300); Phosphorous 2.6 mg/dL (2.3-4.7); Potassium 3.9 mEq/L (3.5-4.5); Sodium 145 mEq/L (136-145); eGFR For African Americans > 60 (> 60); eGFR For Non-African Americans > 60 (> 60)
[2016-10-11] MEDS: Ketoconazole Shampoo 120 ML BOTTLE TP SCH (05:05)
[2016-10-11 05:21] LABS: Blood Urea Nitrogen 27 mg/dL (7-20)
[2016-10-11 05:38] LABS: Large Platelets Present (Not Present); Platelet Estimate Decreased (Normal)
[2016-10-11 06:32] LABS: INR 1.3; Prothrombin Time 14.4 Seconds (9.4-12.1)
[2016-10-11 06:35] LABS: Activated Partial Thrombo Time 51.4 Seconds (26.0-36.0)
[2016-10-11] MEDS ORDERED: Furosemide 20 MG TABLET PO PRN (08:01)
[2016-10-11] MEDS ORDERED: Ipratropium/Albuterol Neb 3 ML IH ONE (08:51)
[2016-10-11] MEDS: Iron Polysaccharide Complex 150 MG CAPSULE PO SCH (09:11)
[2016-10-11] MEDS: Lisinopril 20 MG TABLET PO SCH ×2 (09:12→09:13)
[2016-10-11] MEDS: Aspirin Enteric Coated 81 MG Tablet PO SCH (09:12)
[2016-10-11] MEDS: Metoprolol XL (24 HR) Succ 25 MG TAB.ER.24H PO SCH (09:12)
[2016-10-11] MEDS: amLODIPine 5 MG TABLET PO SCH (09:12)
[2016-10-11] MEDS: Nystatin POWDER 30 GM BOTTLE TP SCH ×2 (09:18→21:34)
[2016-10-11] MEDS ORDERED: APIXABAN 5 MG TABLET PO SCH ×2 (10:00→13:00)
[2016-10-11] MEDS: *HR* Metoprolol 5 MG/5 ML VIAL IVP PRN ×2 (10:29→17:33)
--- NOTE | 2016-10-11 10:50 | Internal Med Progress Note ---
Date of Encounter: 10/11/16 Time of Encounter: 08:45 - Assessment and plan (1) Acute bleeding Current Visit: Yes Status: Acute Assessment and plan: Noted to have bleeding at the site of blood draw this morning (Lt AC) Unable to stop bleeding despite continuous compression Coag profile within acceptable limit Vascular consultation requested Hold ASA, Plavix, and Eliquis until bleeding resolves Will closely monitor H&H (2) DVT (deep venous thrombosis) Current Visit: Yes Status: Acute Assessment and plan: Acute LLE DVT Hematology consultation appreciated Patient received Lovenox at midnight and given current bleeding, will hold off on starting Eliquis until bleeding stops Qualifiers: DVT location: lower extremity Affected thrombotic vein of extremity: unspecified vein of extremity Laterality: left Chronicity: acute Qualified Code(s): I82.402 - Acute embolism and thrombosis of unspecified deep veins of left lower extremity (3) CRISTI (acute kidney injury) Current Visit: Yes Status: Acute Assessment and plan: Likely prerenal secondary to dehydration and urinary outlet obstruction given her urinary retention. Resolved Patient urinating better after initiation of Flomax, will continue Discontinue IV fluids Renal function back to baseline Renal input appreciated (4) Dehydration Current Visit: Yes Status: Resolved (5) Generalized weakness Current Visit: Yes Status: Acute Assessment and plan: Likely secondary to decreased PO intake pt tolerating PO intake well at this time Pt refused Physical therapy eval (6) Elevated troponin Current Visit: Yes Status: Acute Assessment and plan: likely secondary to demand ischemia/CRISTI will trend three serial TNI no EKG changes reported chest pain free will continue to monitor (7) DVT prophylaxis Current Visit: Yes Status: Acute Assessment and plan: anticoagulated with lovenox Will start Eliquis after bleeding stops (8) Hypothyroidism Current Visit: Yes Status: Chronic Assessment and plan: continue Levothyroxine Qualifiers: Hypothyroidism type: unspecified Qualified Code(s): E03.9 - Hypothyroidism , unspecified (9) Hypertension Current Visit: Yes Status: Acute Assessment and plan: Restarted home medications (Lisinopril 40mg qd, Lasix 20mg qd) continue metoprolol, amlodipine added hydralazine 10mg IV q6h prn SBP>160 will closely monitor and adjust medications as needed Qualifiers: Hypertension type: essential hypertension Qualified Code(s): I10 - Essential (primary) hypertension - Subjective Interval history: Patient seen and examined at bedside. Noted to have persistent bleeding from the left AC site s/p morning blood draws. Patient is noted to have persistent bleeding despite applying constant pressure and pressure dressings. Due to continuous bleeding, vascular surgery is consulted. - Constitutional Vitals: Temp Pulse Resp BP Pulse Ox 97.6 F 94 16 168/78 98 10/11/16 08:20 10/11/16 08:20 10/11/16 09:05 10/11/16 08:20 10/11/16 09:05 General appearance: Present: A&O X 3, pleasant, no acute distress, answers questions appropriately - Head Head exam: Present: atraumatic, normocephalic - Eye Eye exam: Present: normal appearance, conjuntiva pink, sclera anicteric - Respiratory Respiratory exam: Present: CTAB, wheezes. Absent: accessory muscle use, rales, rhonchi - Cardiovascular Cardiovascular exam: Present: RRR, +S1, +S2 - GI/Abdominal GI/Abdominal exam: Present: normal bowel sounds, soft, no peritoneal signs. Absent: distended, tenderness - Extremities Exam Additional comments: s/p right BKA, mild LLE edema, LLE calf tenderness - Neurological Exam Neurological exam: Present: alert Internal Medicine: Result - Labs CBC & Chem 7: 10/11/16 03:53 10/11/16 03:53 Labs: Short CBC 10/11/16 Range/Units 03:53 WBC 5.6 (4.3-11.1) K/mcL Hgb 13.0 (11.5-15.4) g/dL Hct 42.6 (35.3-44.9) % Plt Count 109 L (140-400) K/mcL Neutrophils # 4.2 (1.6-8.9) K/mcL BMP 10/11/16 03:53 Sodium 145 Potassium 3.9 Chloride 117 H Carbon Dioxide 17 L BUN 27 H D Creatinine 0.88 Glucose 83 Calcium 8.5 L - ABG Interpretation ABG results: PT/INR, D-dimer PT 14.4 Seconds (9.4-12.1) H 10/11/16 06:12 D-Dimer 2183 ng/mLFEU (0-500) H 10/11/16 06:12 Consult Discharge Plan - Plan Referrals: NO,PCP [Primary Care Provider] - (Patient from [facility] and will follow up with [facility] PCP)
--- NOTE | 2016-10-11 12:15 | Nephrology Progress Note ---
Date of Encounter: 10/11/16 Time of Encounter: 09:15 - Assessment and Plan (1) CRISTI (acute kidney injury) Current Visit: Yes Status: Acute Nonoliguric acute kidney injury, appears prerenal. Creatinine continues to improve. Renal US impression: Atrophic right kidney. Normal left kidney. Volume resuscitated with 0.9% normal saline. Continue to follow a renal protective strategy with avoidance of nephrotoxic medications Dosing of medications by GFR. Will sign off at this time, but please feel free to contact [facility] if any questions. Thank you. (2) Dehydration Current Visit: Yes Status: Resolved See plan above. (3) Generalized weakness Current Visit: Yes Status: Acute Possibly 2/2 to dehydration or deconditioning. See plan above. (4) Vitamin D deficiency Current Visit: Yes Status: Acute Level found to be low at 5ng/ml. I do not see Vitamin D listed in home medications, would recommendation replacement with ergocalciferol 50,000unit/wk. (5) Hypothyroidism Current Visit: Yes Status: Chronic management per primary medicine service. Qualifiers: Hypothyroidism type: unspecified Qualified Code(s): E03.9 - Hypothyroidism , unspecified (6) Acute delirium Current Visit: Yes Status: Acute Patient admits to dementia with memory loss at baseline, though patient appeared more delirious with gazing off and losing focus during questioning. Subjective Principal diagnosis: CRISTI, weakness Interval history: Issue of continued bleeding after lab draw, controlled with pressure. Patient states she is scared, but has no complaints of chest pain, difficulty in breathing, or discomfort. Patient presents with delirium with baseline dementia. Objective - Vital Signs Vital signs: Vital Signs Temp Pulse Resp BP Pulse Ox 10/11/16 09:05 16 98 10/11/16 08:20 97.6 F 94 18 168/78 92 10/11/16 04:42 98.7 F 85 18 186/92 92 10/10/16 22:57 97.6 F 81 16 139/76 91 10/10/16 20:41 98.1 F 81 16 142/76 94 10/10/16 18:06 190/70 10/10/16 14:34 96.8 F L 77 14 195/92 97 Intake and Output 10/10/16 10/11/16 10/11/16 23:59 07:59 15:59 Intake Total 1040 / 1040 120 / 120 Output Total 0 / 0 Balance 1040 / 1040 120 / 120 Intake: IV Fluids 1000 / 1000 0.9 % Sodium Chloride 1, 1000 / 1000 000 ML @ 100 mls/hr IVC . Q10H [facility] Rx#:[id number] Oral 40 / 40 120 / 120 Output: Urine 0 / 0 Other: # Voids 2 Weight 79.889 kg Patient Weight 10/11/16 23:59 Weight 79.889 kg - General Appearance General appearance: Present: well-developed, appears started age, frail EENT: Present: ATNC, mucous membranes dry, hearing intact, vision intact Neck: Present: supple Respiratory: Present: wheezing Cardiology: Present: no edema, regular rate, regular rhythm Gastrointestinal: Present: normoactive bowel sounds, no tenderness, no guarding Integumentary: Present: no rash, warm and dry Neurologic: Present: no focal deficit Additional Comments: alert and oriented x2 (not to place) Musculoskeletal: Present: no erythema, no cyanosis Additional Comments: right BKA, no signs of infection, tenderness, erythema, or induration. Psychiatric: Present: cooperative - Lab 10/11/16 03:53 10/11/16 03:53 Most recent lab results Calcium 8.5 mg/dL (8.6-10.8) L 10/11/16 03:53 Phosphorus 2.6 mg/dL (2.3-4.7) 10/11/16 03:53 Magnesium 1.9 mg/dL (1.6-2.6) 10/11/16 03:53 Urine Creatinine 196 mg/dL 10/09/16 12:40 Urine Sodium 25.0 mEq/L 10/09/16 12:40 Consult Discharge Plan - Plan Referrals: NO,PCP [Primary Care Provider] - (Patient from [facility] and will follow up with [facility] PCP)
[2016-10-11] MEDS ORDERED: *HR* LORazepam 2 MG/ML VIAL IVP ONE (17:39)
--- NOTE | 2016-10-11 17:39 | Vascular/Endovasc Consult Note ---
Date of Encounter: 08/13/16 Time of Encounter: 11:00 Assessment and Plan (1) Acute bleeding Current Visit: Yes Status: Acute The patient underwent a right upper extremity blood draw today and has had persistent bleeding. Direct pressure and a compression bandage were unable to stop the bleeding. A TR Band has been placed and appears to be hemostatic at this time. Will reduce pressure per protocol and continue to observe for further bleeding. If persistent bleeding occurs, the patient will require exploration and repair of her vessels. Continue to hold anticoagulation at this time. (2) CRISTI (acute kidney injury) Current Visit: Yes Status: Acute (3) Hypertension Current Visit: Yes Status: Chronic Qualifiers: Hypertension type: essential hypertension Qualified Code(s): I10 - Essential (primary) hypertension - History of Present Illness Consult date: 10/11/16 Requesting physician: Hue Tariq Consult reason: right upper extremity bleeding Chief complaint: Right upper extremity bleeding History of present illness: Ms. Garcia is a 75 year old female with a history of hypertension and hyperlipidemia who was admitted with acute kidney injury and generalized weakness. The patient reportedly had a blood draw this morning in the right antecubital fossa. After the procedure, the patient had peristent bleeding from the site. The bleeding was thought to be arterial and despite direct pressure and a pressure bandage, the bleeding persisted. She did receive lovenox prior to the puncture. Vascular surgery was consulted for further evaluation. At the time of examination, the patient is comfortable and alert. She arm pain, chest pain or shortness of breath. Past Med Surg Social Fam HX - Past Medical History Medical history: atrial fibrillation, CHF, COPD, CVA, DVT, GERD, renal disease, thyroid disease, TIA, other Psychiatric history: anxiety - Past Surgical History Surgical History: cholecystectomy - Social History Smoking Status: Former smoker Alcohol use: none Drug use: none - Family History Mother Hx Family Cardiac Disorders: Yes (heart attack) Father Hx Family Neurologic Disorders: Yes (stroke) Brother Hx Family Neurologic Disorders: Yes (stroke) Medications and Allergies 0.9 % Sodium Chloride 1,000 ml IV BID 10/08/16 [History] Acetaminophen [Tylenol] 650 mg PO Q4H PRN 10/08/16 [History] Albuterol Neb [Proventil Neb] 2.5 mg IH Q4HR PRN 10/08/16 [History] Ammonium Lactate 1 appl TP DAILY 10/08/16 [History] Aspirin Enteric Coated [Aspirin EC] 81 mg PO DAILY 10/08/16 [History] Clopidogrel [Plavix] 75 mg PO DAILY 10/08/16 [History] Esomeprazole Magnesium [Nexium] 40 mg PO DAILY 10/08/16 [History] Furosemide [Lasix] 20 mg PO DAILY PRN 10/08/16 [History] Gabapentin [Neurontin] 300 mg PO TID 10/08/16 [History] GuaiFENesin/Dextromethorphan [Tussin Dm Syrup] 10 ml PO Q4H PRN 10/08/16 [ History] Hydraguard 1 appl TP BID 10/08/16 [History] Hydrocortisone 1% CREAM [Cortaid] 1 appl TP BID PRN 10/08/16 [History] Iron Polysaccharide Complex [Ferrex 150] 150 mg PO DAILY 10/08/16 [History] Ketoconazole Shampoo [Nizoral Shampoo] 1 appl TP FR 10/08/16 [History] Levothyroxine [Synthroid] 50 mcg PO 0630 10/08/16 [History] Lisinopril [Zestril] 40 mg PO DAILY 10/08/16 [History] Loperamide HCl [Imodium A-D] 2 - 4 mg PO Q8H PRN MDD 12 mg 10/08/16 [History] Metoprolol XL (24 HR) Succ [Toprol XL] 12.5 mg PO DAILY 10/08/16 [History] Ondansetron HCl [Zofran] 4 mg PO Q6H PRN 10/08/16 [History] Ondansetron ODT [Zofran ODT] 4 mg SL Q4HR PRN 10/08/16 [History] Oxygen 1 each .ROUTE AD 10/08/16 [History] Pravastatin Sodium [Pravachol] 20 mg PO HS 10/08/16 [History] S.boulardii/B.coagulans/Fos [Diff-Stat 471 mg Capsule] 471 mg PO BID 10/08/16 [ History] Sertraline [Zoloft] 25 mg PO DAILY 10/08/16 [History] Sotalol [Betapace] 40 mg PO BID 10/08/16 [History] Tramadol HCl [Ultram] 50 mg PO Q6H PRN 10/08/16 [History] Tramadol HCl [Ultram] 100 mg PO Q6H PRN 10/08/16 [History] Triamcinolone Acet 0.1% CRM [Kenalog] 1 appl TP BID PRN 10/08/16 [History] Allergies diphenhydramine [From Benadryl] Allergy (Verified 10/08/16 16:19) See Comments ibuprofen Allergy (Verified 10/08/16 16:19) See Comments morphine Allergy (Verified 10/08/16 16:19) See Comments sulfamethoxazole [From Bactrim] Allergy (Verified 10/08/16 16:19) See Comments trimethoprim [From Bactrim] Allergy (Verified 10/08/16 16:19) See Comments All Systems Review: A 10-system review of systems was performed and is negative for pertinent findings except as documented above in the HPI. - Constitutional Constitutional: no chills, no fever(s) - Cardiovascular Cardiovascular: no palpitations Exam Vital Signs, Last 4 Hours Temp Pulse Resp BP Pulse Ox 10/11/16 15:17 98.3 F 94 20 181/77 93 General: Present: Conversant, No Apparent Distress HEENT: Present: Atraumatic, Normocephaly, Pupils equal Neck: Absent: JVD, Left Carotid bruit, Right Carotid bruit Cardiac: Present: Reg Rate and Rhythm, Normal S1 and S2 Lungs: Present: Normal Breath Sounds, No Wheeze, Rales, Rhonchi Neuro: Present: Alert and responsive, Motor nerves grossly intact (except LUE 4/ 5 secondary to prior stroke), Sensory nerves grossly intact Abdomen: Present: Soft, Non-tender Vascular: Present: Normal capillary refill, Pulse, normal, Other (ecchymosis at right antecubital fossa, small hematoma noted, no pulsatile mass, TR Band compression device present over bleeding site). Absent: Cyanosis, Edema Skin: Present: No rashes noted on visualized skin Consult Discharge Plan - Plan Referrals: NO,PCP [Primary Care Provider] - (Patient from [facility] and will follow up with [facility] PCP)
[2016-10-11] MEDS: *HR* LORazepam 2 MG/ML VIAL IVP ONE (23:15)
[2016-10-11] MEDS ORDERED: *HR* Morphine 2 MG/ML SYRINGE IV ONE (23:26)
[2016-10-12] MEDS: 0.9 % Sodium Chloride 1,000 ML IVC SCH (01:00)
[2016-10-12] MEDS ORDERED: *HR* LORazepam 2 MG/ML VIAL ONE (04:54)
[2016-10-12] MEDS: *HR* LORazepam 2 MG/ML VIAL IVP ONE (04:58)
[2016-10-12 05:28] LABS: Basophils # 0.1 K/mcL (0.0-0.2); Basophils % 0.5 %; Eosinophils # 0.1 K/mcL (0.0-0.6); Eosinophils % 0.6 %; Hemoglobin 13.4 g/dL (11.5-15.4); Immature Granulocytes % 0.6 % (0-4); Lymphocytes # 0.6 K/mcL (0.6-4.6); Lymphocytes % 5.9 %; Mean Corpuscular HGB Conc 30.5 g/dL (31.6-35.5); Mean Corpuscular Hemoglobin 28.2 pg (28.0-33.3); Mean Corpuscular Volume 92.4 fL (83.0-100.0); Mean Platelet Volume 13.2 fL (9.4-12.4); Monocytes # 0.5 K/mcL (0.0-1.3); Monocytes % 5.2 %; Neutrophils # 8.4 K/mcL (1.6-8.9); Platelet Count 158 K/mcL (140-400); Red Blood Count 4.76 M/mcL (3.82-4.97); Red Cell Distribution Width 19.9 % (11.5-14.5); Segmented Neutrophils % 87.2 %
[2016-10-12 05:47] LABS: BUN/Creatinine Ratio 25 (6-26); Blood Urea Nitrogen 19 mg/dL (7-20); Carbon Dioxide 18 mEq/L (19-29); Chloride 115 mEq/L (98-109); Glucose 100 mg/dL (70-99); Magnesium 1.5 mg/dL (1.6-2.6); Osmolality,Calculated 296 (280-300); Phosphorous 3.3 mg/dL (2.3-4.7); Potassium 4.2 mEq/L (3.5-4.5); Sodium 142 mEq/L (136-145); eGFR For African Americans > 60 (> 60); eGFR For Non-African Americans > 60 (> 60)
[2016-10-12] MEDS ORDERED: Magnesium Sulfate 1 GM in D5% in Water 100 ML IVPB ONE (07:34)
[2016-10-12] MEDS ORDERED: Furosemide 20 MG TABLET PO SCH (09:00)
[2016-10-12] MEDS: Aspirin Enteric Coated 81 MG Tablet PO SCH (09:49)
[2016-10-12] MEDS: amLODIPine 5 MG TABLET PO SCH (09:49)
[2016-10-12] MEDS: Metoprolol XL (24 HR) Succ 25 MG TAB.ER.24H PO SCH (09:50)
[2016-10-12] MEDS: Lisinopril 20 MG TABLET PO SCH (09:53)
[2016-10-12] MEDS: Iron Polysaccharide Complex 150 MG CAPSULE PO SCH (09:53)
[2016-10-12] MEDS: Nystatin POWDER 30 GM BOTTLE TP SCH ×2 (09:59→20:49)
--- NOTE | 2016-10-12 10:14 | Internal Med Progress Note ---
Date of Encounter: 10/12/16 Time of Encounter: 09:35 - Assessment and plan (1) Change in mental state Current Visit: Yes Status: Acute Assessment and plan: Of unclear etiology her respiratory distress appears to be anxiety driven will obtain CXR and UA to r/o infectious etiology contributing to her mental status change also appears to be a sundowning phenomenon, will start low dose Seroquel and avoid Benzos will closely monitor mental status. Qualifiers: Altered mental status type: unspecified Qualified Code(s): R41.82 - Altered mental status, unspecified (2) Acute bleeding Current Visit: Yes Status: Acute Assessment and plan: Resolved Repeat H&H within acceptable range (3) DVT (deep venous thrombosis) Current Visit: Yes Status: Acute Assessment and plan: Official report did not show any LE DVT Anticoagulation discontinued Qualifiers: DVT location: lower extremity Affected thrombotic vein of extremity: unspecified vein of extremity Laterality: left Chronicity: acute Qualified Code(s): I82.402 - Acute embolism and thrombosis of unspecified deep veins of left lower extremity (4) CRISTI (acute kidney injury) Current Visit: Yes Status: Acute Assessment and plan: Resolved Renal function back to baseline restarted home medications discharge pending improvement in respiratory status (5) Dehydration Current Visit: Yes Status: Resolved (6) Generalized weakness Current Visit: Yes Status: Acute Assessment and plan: Likely secondary to decreased PO intake pt tolerating PO intake well at this time Pt refused Physical therapy eval (7) Elevated troponin Current Visit: Yes Status: Acute Assessment and plan: likely secondary to demand ischemia/CRISTI will trend three serial TNI no EKG changes reported chest pain free will continue to monitor (8) DVT prophylaxis Current Visit: Yes Status: Acute Assessment and plan: Heparin sQ (9) Hypothyroidism Current Visit: Yes Status: Chronic Assessment and plan: continue Levothyroxine Qualifiers: Hypothyroidism type: unspecified Qualified Code(s): E03.9 - Hypothyroidism , unspecified (10) Hypertension Current Visit: Yes Status: Acute Assessment and plan: continue home medications (Lisinopril 40mg qd, Lasix 20mg qd) continue metoprolol, amlodipine added hydralazine 10mg IV q6h prn SBP>160 will closely monitor and adjust medications as needed Increased Amlodipine to 10mg PO daily will closely monitor BP Qualifiers: Hypertension type: essential hypertension Qualified Code(s): I10 - Essential (primary) hypertension - Subjective Interval history: Patient seen and examined at bedside. Reported to be severely agitated and anxious overnight resulting in tachypenia and hypoxia. She was given Haldol and morphine and placed on bipap support. This morning patient is confused and refusing bipap support. Will obtain XRAY to rule out PNA or any other etiology other than anxiety causing her respiratory distress. - Constitutional Vitals: Temp Pulse Resp BP Pulse Ox 98.1 F 88 20 166/88 94 10/12/16 08:07 10/12/16 08:07 10/12/16 08:07 10/12/16 08:07 10/12/16 08:07 General appearance: Present: A&O X 1 (oriented to self, confused ), pleasant, no acute distress, answers questions appropriately - Head Head exam: Present: atraumatic, normocephalic - Eye Eye exam: Present: normal appearance, conjuntiva pink, sclera anicteric - Respiratory Respiratory exam: Present: CTAB. Absent: wheezes - Cardiovascular Cardiovascular exam: Present: RRR, +S1, +S2 - GI/Abdominal GI/Abdominal exam: Present: normal bowel sounds, soft. Absent: distended, tenderness - Extremities Exam Additional comments: s/p right BKA, mild LLE edema, LLE calf tenderness - Neurological Exam Neurological exam: Present: alert - Psychiatric Psychiatric exam: Present: agitated, anxious Internal Medicine: Result - Labs CBC & Chem 7: 10/12/16 04:45 10/12/16 04:45 Labs: Short CBC 10/12/16 Range/Units 04:45 WBC 9.6 D (4.3-11.1) K/mcL Hgb 13.4 (11.5-15.4) g/dL Hct 44.0 (35.3-44.9) % Plt Count 158 (140-400) K/mcL Neutrophils # 8.4 (1.6-8.9) K/mcL BMP 10/12/16 04:45 Sodium 142 Potassium 4.2 Chloride 115 H Carbon Dioxide 18 L BUN 19 Creatinine 0.75 Glucose 100 H Calcium 9.0 - ABG Interpretation ABG results: PT/INR, D-dimer PT 14.4 Seconds (9.4-12.1) H 10/11/16 06:12 D-Dimer 2183 ng/mLFEU (0-500) H 10/11/16 06:12 Consult Discharge Plan - Plan Referrals: NO,PCP [Primary Care Provider] - (Patient from [facility] and will follow up with [facility] PCP)
[2016-10-12] MEDS ORDERED: Furosemide 40 MG/4 ML VIAL IVP ONE (12:25)
[2016-10-12 13:29] LABS: Bilirubin,Urine Negative (Negative); Blood,Urine Negative (Negative); Clarity,Urine Clear (Clear); Color,Urine Yellow (Yellow); Glucose,Urine (UA) Normal (Normal); Ketones,Urine Trace mg/dL (Negative); Leukocyte Esterase,Urine Negative (Negative); Nitrite,Urine Negative (Negative); Protein,Urine Negative (Neg-Trace); Specific Gravity,Urine 1.012 (1.010-1.025); Urobilinogen,Urine Normal (Normal)
[2016-10-12] MEDS ORDERED: Haloperidol Lactate 5 MG/ML VIAL IM ONE (15:32)
--- NOTE | 2016-10-12 16:51 | Vascular/Endovas Progress Note ---
Date of Encounter: 10/12/16 Time of Encounter: 13:30 - Assessment and plan (1) Acute bleeding Current Visit: Yes Status: Acute The patient had persistent bleeding from her venipuncture site that did not resolve after several hours yesterday. Inspection of the site today reveals no evidence of further bleeding and no hematoma is present. Will sign-off today. Reconsult if further issues arise. (2) Hypertension Current Visit: Yes Status: Acute Qualifiers: Hypertension type: essential hypertension Qualified Code(s): I10 - Essential (primary) hypertension (3) CRISTI (acute kidney injury) Current Visit: Yes Status: Acute Creatinine within normal limits today. (4) Dementia Current Visit: Yes Status: Chronic Qualifiers: Dementia type: unspecified type Dementia behavioral disturbance: without behavioral disturbance Qualified Code(s): F03.90 - Unspecified dementia without behavioral disturbance - Subjective Interval history: The patient is comfortable without complaints. She denies any arm pain. She had no acute issues overnight. Vital Signs, Last 4 Hours Temp Pulse Resp BP Pulse Ox 10/12/16 15:41 97.4 F L 97 16 131/66 98 - Physical Examination General: Present: No Apparent Distress HEENT: Present: Pupils equal Cardiac: Present: Reg Rate and Rhythm Lungs: Present: Normal Breath Sounds Neuro: Present: Alert and responsive, No focal deficits noted, Motor nerves grossly intact, Sensory nerves grossly intact Vascular: Present: Normal capillary refill, Pulse, normal. Absent: Cyanosis, Edema Abdomen: Present: Soft Skin: Present: No rashes noted on visualized skin, Other (ecchymosis at right antecubital fossa, no significant hematoma) Results 10/13/16 04:53 10/13/16 04:53 Lab Results, Last 24 hours 10/12/16 10/12/16 04:45 04:45 WBC 9.6 D Hgb 13.4 Hct 44.0 Plt Count 158 Sodium 142 Potassium 4.2 Chloride 115 H Carbon Dioxide 18 L BUN 19 Creatinine 0.75 Glucose 100 H Calcium 9.0 Magnesium 1.5 L Consult Discharge Plan - Plan Referrals: NO,PCP [Primary Care Provider] - (Patient from [facility] and will follow up with [facility] PCP)
[2016-10-12] MEDS: *HR* Heparin 5,000 UNIT/ML VIAL SQ SCH (19:04)
[2016-10-12] MEDS ORDERED: Furosemide 20 MG/2 ML VIAL IVP ONE (20:00)
[2016-10-12] MEDS ORDERED: PHENobarbital 65 MG/ML VIAL IVP STA (21:10)
[2016-10-12] MEDS: *HR* Metoprolol 5 MG/5 ML VIAL IVP PRN (21:32)
[2016-10-13] MEDS: Ipratropium/Albuterol Neb 3 ML IH PRN ×2 (03:48→20:13)
[2016-10-13] MEDS ORDERED: PHENOBARBITAL IVPB STA (04:03)
[2016-10-13] MEDS ORDERED: Furosemide 20 MG/2 ML VIAL IVP ONE ×3 (04:15→06:55)
[2016-10-13] MEDS ORDERED: *HR* LORazepam 2 MG/ML VIAL ONE (04:28)
[2016-10-13] MEDS ORDERED: *HR* LORazepam 2 MG/ML VIAL IVP ONE ×4 (04:33→21:01)
[2016-10-13] MEDS ORDERED: PHENobarbital 65 MG/ML VIAL IVP ONE (04:40)
[2016-10-13 05:14] LABS: Basophils % 0.4 %; Eosinophils # 0.2 K/mcL (0.0-0.6); Eosinophils % 1.8 %; Hematocrit 38.7 % (35.3-44.9); Hemoglobin 12.2 g/dL (11.5-15.4); Immature Granulocytes % 0.4 % (0-4); Lymphocytes # 0.6 K/mcL (0.6-4.6); Lymphocytes % 6.1 %; Mean Corpuscular HGB Conc 31.5 g/dL (31.6-35.5); Mean Corpuscular Hemoglobin 28.5 pg (28.0-33.3); Mean Corpuscular Volume 90.4 fL (83.0-100.0); Mean Platelet Volume 13.2 fL (9.4-12.4); Monocytes # 0.6 K/mcL (0.0-1.3); Monocytes % 6.3 %; Neutrophils # 7.6 K/mcL (1.6-8.9); Platelet Count 139 K/mcL (140-400); Red Blood Count 4.28 M/mcL (3.82-4.97); Red Cell Distribution Width 19.4 % (11.5-14.5)
[2016-10-13 05:26] LABS: BUN/Creatinine Ratio 21 (6-26); Blood Urea Nitrogen 16 mg/dL (7-20); Calcium 8.8 mg/dL (8.6-10.8); Carbon Dioxide 22 mEq/L (19-29); Chloride 109 mEq/L (98-109); Glucose 99 mg/dL (70-99); Magnesium 1.3 mg/dL (1.6-2.6); Osmolality,Calculated 299 (280-300); Phosphorous 3.6 mg/dL (2.3-4.7); Potassium 3.5 mEq/L (3.5-4.5); Sodium 144 mEq/L (136-145); eGFR For African Americans > 60 (> 60); eGFR For Non-African Americans > 60 (> 60)
[2016-10-13] MEDS: *HR* Heparin 5,000 UNIT/ML VIAL SQ SCH ×2 (06:04→17:15)
[2016-10-13] MEDS ORDERED: Magnesium Sulfate 2 GM in D5% in Water 100 ML IVPB ONE ×2 (06:56→07:25)
[2016-10-13] MEDS ORDERED: Valproic Acid 250 MG CAPSULE PO SCH (08:00)
[2016-10-13] MEDS ORDERED: Furosemide 40 MG/4 ML VIAL IVP SCH (09:00)
[2016-10-13] MEDS ORDERED: Furosemide 20 MG TABLET PO SCH (09:00)
[2016-10-13] MEDS: Piperacillin/Tazobactam 3.375 GM in D5% in Water (Mini-Bag+) 100 ML IVPB SCH ×3 (09:13→23:27)
--- NOTE | 2016-10-13 12:08 | Internal Med Progress Note ---
Date of Encounter: 10/13/16 Time of Encounter: 12:04 - Assessment and plan (1) Acute respiratory distress Current Visit: Yes Status: Acute Assessment and plan: Likely Secondary to Volume overload and underlying PNA will continue NRB support continue diuretic and IV abx monitor O2 saturation patient's respiratory status also appears to be anxiety driven will closely monitor respiratory status (2) Pneumonia Current Visit: Yes Status: Acute Assessment and plan: [place] from [place] will treat as HCAP f/u blood cultures de-escalate therapy as per cultures pt is afebrile and no leukocytosis reported however given worsening respiratory status and given CXR findings, will treat with empiric abx Qualifiers: Pneumonia type: due to unspecified organism Laterality: right Lung location: lower lobe of lung Qualified Code(s): J18.1 - Lobar pneumonia, unspecified organism (3) Change in mental state Current Visit: Yes Status: Acute Assessment and plan: Of unclear etiology can be secondary to underlying PNA will treat with empiric IV abx also appears to be a sundowning phenomenon, will increase Seroquel dose and try to avoid Benzos will closely monitor mental status. Qualifiers: Altered mental status type: unspecified Qualified Code(s): R41.82 - Altered mental status, unspecified (4) Acute bleeding Current Visit: Yes Status: Acute Assessment and plan: Resolved Repeat H&H within acceptable range (5) DVT (deep venous thrombosis) Current Visit: Yes Status: Acute Assessment and plan: Official report did not show any LE DVT Anticoagulation discontinued Qualifiers: DVT location: lower extremity Affected thrombotic vein of extremity: unspecified vein of extremity Laterality: left Chronicity: acute Qualified Code(s): I82.402 - Acute embolism and thrombosis of unspecified deep veins of left lower extremity (6) CRISTI (acute kidney injury) Current Visit: Yes Status: Acute Assessment and plan: Resolved Renal function back to baseline continue home medications (7) Dehydration Current Visit: Yes Status: Resolved Assessment and plan: plan as listed above (8) Generalized weakness Current Visit: Yes Status: Chronic (9) DVT prophylaxis Current Visit: Yes Status: Acute Assessment and plan: Heparin sQ (10) Hypothyroidism Current Visit: Yes Status: Chronic Assessment and plan: continue Levothyroxine Qualifiers: Hypothyroidism type: unspecified Qualified Code(s): E03.9 - Hypothyroidism , unspecified (11) Hypertension Current Visit: Yes Status: Acute Assessment and plan: continue home medications (Lisinopril 40mg qd, Lasix 20mg qd) continue metoprolol, amlodipine hydralazine 10mg IV q6h prn SBP>160 will closely monitor and adjust medications as needed continue Amlodipine to 10mg PO daily will closely monitor BP Qualifiers: Hypertension type: essential hypertension Qualified Code(s): I10 - Essential (primary) hypertension (12) Hypomagnesemia Current Visit: Yes Status: Acute Assessment and plan: Mg supplemented continue to monitor electrolytes and replace as needed - Subjective Interval history: Patient seen and examined with daughter present at bedside. Patient reported of being severely agitated and hypoxic overnight, requiring numerous doses of Ativan and diuretic support. Patient's repeat CXR shows infiltrates concerning for pneumonia. It is noted that patient is saturating well at rest however becomes hypoxic and tachypeneic when agitated. Currently sleeping but easily arousable. Remains confused. - Constitutional Vitals: Temp Pulse Resp BP Pulse Ox 98.0 F 90 18 154/66 94 10/13/16 11:39 10/13/16 11:39 10/13/16 11:39 10/13/16 11:39 10/13/16 11:39 General appearance: Present: A&O X 1 (oriented to self, confused ), pleasant, no acute distress, answers questions appropriately - Head Head exam: Present: atraumatic, normocephalic - Eye Eye exam: Present: conjuntiva pink, sclera anicteric - Respiratory Respiratory exam: Present: decreased breath sounds. Absent: wheezes, tachypnea - Cardiovascular Cardiovascular exam: Present: RRR, +S1, +S2. Absent: diastolic murmur, gallop, rubs, systolic murmur - GI/Abdominal GI/Abdominal exam: Present: normal bowel sounds, soft, no peritoneal signs. Absent: distended, tenderness - Extremities Exam Extremities exam: Absent: calf tenderness Additional comments: s/p right BKA, mild LLE edema Internal Medicine: Result - Labs CBC & Chem 7: 10/13/16 04:53 10/13/16 04:53 Labs: Short CBC 10/13/16 Range/Units 04:53 WBC 9.0 (4.3-11.1) K/mcL Hgb 12.2 (11.5-15.4) g/dL Hct 38.7 (35.3-44.9) % Plt Count 139 L (140-400) K/mcL Neutrophils # 7.6 (1.6-8.9) K/mcL BMP 10/13/16 04:53 Sodium 144 Potassium 3.5 Chloride 109 Carbon Dioxide 22 BUN 16 Creatinine 0.77 Glucose 99 Calcium 8.8 Urine 10/12/16 Range/Units 13:09 Urine Color Yellow (Yellow) Urine Clarity Clear (Clear) Urine pH 6.0 (5.0-8.0) pH Units Ur Specific [place] 1.012 (1.010-1.025) Urine Protein Negative (Neg-Trace) mg/dL Urine Glucose (UA) Normal (Normal) mg/dL - ABG Interpretation ABG results: PT/INR, D-dimer PT 14.4 Seconds (9.4-12.1) H 10/11/16 06:12 D-Dimer 2183 ng/mLFEU (0-500) H 10/11/16 06:12 - Impressions Impressions Chest X-Ray 10/13/16 04:07 IMPRESSION: Improved right lower lobe infiltrate. Persistent increased interstitial markings and cardiomegaly. D/ / 10/13/2016 07:54:52 Nidhi Olvera MD / [facility] Interpreting Provider: Nidhi Olvera MD Consult Discharge Plan - Plan Referrals: NO,PCP [Primary Care Provider] - (Patient from [facility] and will follow up with [facility] PCP)
[2016-10-13] MEDS: Lisinopril 20 MG TABLET PO SCH (12:43)
[2016-10-13] MEDS: Aspirin Enteric Coated 81 MG Tablet PO SCH (12:43)
[2016-10-13] MEDS: Metoprolol XL (24 HR) Succ 25 MG TAB.ER.24H PO SCH (12:43)
[2016-10-13] MEDS: Iron Polysaccharide Complex 150 MG CAPSULE PO SCH (12:43)
[2016-10-13] MEDS: Nystatin POWDER 30 GM BOTTLE TP SCH ×2 (12:44→23:27)
[2016-10-13] MEDS: amLODIPine 5 MG TABLET PO SCH (12:44)
[2016-10-13] MEDS: Vancomycin 1,250 MG in D5% in Water 250 ML IVPB SCH (14:08)
[2016-10-13] MEDS: Furosemide 40 MG/4 ML VIAL IVP SCH (16:24)
[2016-10-14] MEDS ORDERED: *HR* LORazepam 2 MG/ML VIAL IVP ONE (00:12)
[2016-10-14 03:41] LABS: Basophils # 0.1 K/mcL (0.0-0.2); Basophils % 0.5 %; Eosinophils # 0.4 K/mcL (0.0-0.6); Eosinophils % 4.6 %; Hematocrit 40.8 % (35.3-44.9); Hemoglobin 12.9 g/dL (11.5-15.4); Immature Granulocytes % 0.4 % (0-4); Lymphocytes # 0.7 K/mcL (0.6-4.6); Lymphocytes % 7.2 %; Mean Corpuscular HGB Conc 31.6 g/dL (31.6-35.5); Mean Corpuscular Hemoglobin 27.9 pg (28.0-33.3); Mean Corpuscular Volume 88.3 fL (83.0-100.0); Mean Platelet Volume 12.6 fL (9.4-12.4); Monocytes % 10.3 %; Neutrophils # 7.2 K/mcL (1.6-8.9); Platelet Count 142 K/mcL (140-400); Red Blood Count 4.62 M/mcL (3.82-4.97); Red Cell Distribution Width 19.2 % (11.5-14.5)
[2016-10-14 04:01] LABS: BUN/Creatinine Ratio 16 (6-26); Blood Urea Nitrogen 12 mg/dL (7-20); Calcium 8.3 mg/dL (8.6-10.8); Carbon Dioxide 30 mEq/L (19-29); Chloride 99 mEq/L (98-109); Glucose 92 mg/dL (70-99); Magnesium 1.2 mg/dL (1.6-2.6); Osmolality,Calculated 291 (280-300); Phosphorous 3.4 mg/dL (2.3-4.7); Potassium 2.8 mEq/L (3.5-4.5); Sodium 141 mEq/L (136-145); eGFR For African Americans > 60 (> 60); eGFR For Non-African Americans > 60 (> 60)
[2016-10-14] MEDS: *HR* Heparin 5,000 UNIT/ML VIAL SQ SCH ×2 (05:20→18:44)
[2016-10-14] MEDS ORDERED: Potassium Chloride 20 MEQ, Lidocaine 1% 2 ML in D5% in Water 250 ML IVPB ONE (07:38)
[2016-10-14] MEDS ORDERED: Potassium Chloride 40 MEQ, Lidocaine 1% 2 ML in D5% in Water 500 ML IVPB ONE (07:38)
[2016-10-14] MEDS ORDERED: Magnesium Sulfate 2 GM in D5% in Water 100 ML IVPB ONE (07:39)
[2016-10-14] MEDS: Furosemide 40 MG/4 ML VIAL IVP SCH (09:18)
[2016-10-14] MEDS: Metoprolol XL (24 HR) Succ 25 MG TAB.ER.24H PO SCH (09:21)
[2016-10-14] MEDS: Aspirin Enteric Coated 81 MG Tablet PO SCH (09:21)
[2016-10-14] MEDS: amLODIPine 5 MG TABLET PO SCH (09:22)
[2016-10-14] MEDS: Nystatin POWDER 30 GM BOTTLE TP SCH (09:22)
[2016-10-14] MEDS: Lisinopril 20 MG TABLET PO SCH (09:22)
[2016-10-14] MEDS: Iron Polysaccharide Complex 150 MG CAPSULE PO SCH (09:23)
[2016-10-14] MEDS: Piperacillin/Tazobactam 3.375 GM in D5% in Water (Mini-Bag+) 100 ML IVPB SCH ×2 (11:18→18:44)
--- NOTE | 2016-10-14 11:30 | Internal Med Progress Note ---
Date of Encounter: 10/14/16 Time of Encounter: 09:25 - Assessment and plan (1) Acute respiratory distress Current Visit: Yes Status: Acute Assessment and plan: Likely Secondary to Volume overload and underlying PNA will continue NRB support continue diuretic and IV abx monitor O2 saturation patient's respiratory status also appears to be anxiety driven will closely monitor respiratory status CTA chest negative for PE and improvement in pleural effusions Will continue IV abx for five days Patient has reported history of COPD and give clinical exam findings of wheezing , will empirically treat with IV steroids and bronchodilator support (2) Pneumonia Current Visit: Yes Status: Acute Assessment and plan: Pt from [place] will treat as HCAP f/u blood cultures de-escalate therapy as per cultures pt is afebrile and no leukocytosis reported however given worsening respiratory status and given CXR findings, will treat with empiric abx Qualifiers: Pneumonia type: due to unspecified organism Laterality: right Lung location: lower lobe of lung Qualified Code(s): J18.1 - Lobar pneumonia, unspecified organism (3) Change in mental state Current Visit: Yes Status: Acute Assessment and plan: Of unclear etiology can be secondary to underlying PNA will treat with empiric IV abx also appears to be a sundowning phenomenon, continue Seroquel dose and try to avoid Benzos will closely monitor mental status. Qualifiers: Altered mental status type: unspecified Qualified Code(s): R41.82 - Altered mental status, unspecified (4) Acute bleeding Current Visit: Yes Status: Acute Assessment and plan: Resolved Repeat H&H within acceptable range (5) DVT (deep venous thrombosis) Current Visit: Yes Status: Acute Assessment and plan: Official report did not show any LE DVT Anticoagulation discontinued Qualifiers: DVT location: lower extremity Affected thrombotic vein of extremity: unspecified vein of extremity Laterality: left Chronicity: acute Qualified Code(s): I82.402 - Acute embolism and thrombosis of unspecified deep veins of left lower extremity (6) CRISTI (acute kidney injury) Current Visit: Yes Status: Acute Assessment and plan: Resolved Renal function back to baseline continue home medications (7) Dehydration Current Visit: Yes Status: Resolved (8) Generalized weakness Current Visit: Yes Status: Chronic (9) DVT prophylaxis Current Visit: Yes Status: Acute Assessment and plan: Heparin sQ (10) Hypothyroidism Current Visit: Yes Status: Chronic Qualifiers: Hypothyroidism type: unspecified Qualified Code(s): E03.9 - Hypothyroidism , unspecified (11) Hypertension Current Visit: Yes Status: Acute Assessment and plan: BP within acceptable range continue home medications Qualifiers: Hypertension type: essential hypertension Qualified Code(s): I10 - Essential (primary) hypertension (12) Hypomagnesemia Current Visit: Yes Status: Acute Assessment and plan: Mg supplemented continue to monitor electrolytes and replace as needed (13) Hypokalemia Current Visit: Yes Status: Acute Assessment and plan: K supplemented continue to monitor electrolytes and replace as needed - Subjective Interval history: Patient seen and examined with sister present at bedside. Patient continues to remain agitated overnight despite seroquel therapy and requiring IV doses of Ativan. Given her respiratory status, there was a concern for acute PE for which CTA chest was done. CTA chest was negative for PE and there is improvement in her bilateral pleural effusions and no reported pulmonary edema on CTA chest. Patient is currently saturating well on NRB and HR within acceptable range. Mental status somnolent due to ativan but arousable and oriented to self and family. - Constitutional Vitals: Temp Pulse Resp BP Pulse Ox 98.1 F 85 17 105/60 93 10/14/16 10:51 10/14/16 10:51 10/14/16 10:51 10/14/16 10:51 10/14/16 10:51 General appearance: Present: A&O X 1 (oriented to self, confused ), pleasant, no acute distress, answers questions appropriately - Head Head exam: Present: atraumatic, normocephalic - Eye Eye exam: Present: normal appearance, conjuntiva pink, sclera anicteric - Respiratory Respiratory exam: Present: decreased breath sounds, wheezes (b/l expiratory wheezing). Absent: respiratory distress - Cardiovascular Cardiovascular exam: Present: RRR, +S1, +S2 - GI/Abdominal GI/Abdominal exam: Present: normal bowel sounds, soft. Absent: distended, tenderness - Extremities Exam Extremities exam: Present: calf tenderness, warm, radial pulses palpable and symetrical. Absent: pedal edema Additional comments: s/p Rt BKA Internal Medicine: Result - Labs CBC & Chem 7: 10/14/16 03:22 10/14/16 03:22 Labs: Short CBC 10/14/16 Range/Units 03:22 WBC 9.3 (4.3-11.1) K/mcL Hgb 12.9 (11.5-15.4) g/dL Hct 40.8 (35.3-44.9) % Plt Count 142 (140-400) K/mcL Neutrophils # 7.2 (1.6-8.9) K/mcL BMP 10/14/16 03:22 Sodium 141 Potassium 2.8 L Chloride 99 Carbon Dioxide 30 H BUN 12 Creatinine 0.74 Glucose 92 Calcium 8.3 L - ABG Interpretation ABG results: PT/INR, D-dimer PT 14.4 Seconds (9.4-12.1) H 10/11/16 06:12 D-Dimer 2183 ng/mLFEU (0-500) H 10/11/16 06:12 - Impressions Impressions Chest X-Ray 10/13/16 04:07 IMPRESSION: Improved right lower lobe infiltrate. Persistent increased interstitial markings and cardiomegaly. D/ / 10/13/2016 07:54:52 Nidhi Olvera MD / [facility] [place] Interpreting Provider: Nidhi Olvera MD Chest X-Ray 10/14/16 07:00 IMPRESSION: Shifting or increasing left pleural effusion with increasing left basilar atelectasis. Persistent bilateral interstitial infiltrates/edema. D/ / 10/14/2016 08:05:43 Herber Hoffmann MD / [facility] Interpreting Provider: Herber Hoffmann MD Chest CTA 10/14/16 08:59 IMPRESSION: 1. No acute pulmonary emboli, aortic dissection or aneurysm. Severe motion artifact is however quite limiting. 2. Moderate bibasilar atelectasis and trace pleural effusions 3. Scattered mediastinal adenopathy possibly reactive but indeterminate. D/ / Georgi Shields MD / Georgi Shields MD Interpreting Provider: Georgi Shields MD Consult Discharge Plan - Plan Referrals: NO,PCP [Primary Care Provider] - (Patient from [facility] and will follow up with [facility] PCP)
[2016-10-14] MEDS: methylPREDNISolone 125 MG/2 ML VIAL IVP SCH ×2 (12:21→18:44)
[2016-10-14] MEDS: Vancomycin 1,250 MG in D5% in Water 250 ML IVPB SCH ×2 (15:51→16:24)
[2016-10-14] MEDS: Ipratropium/Albuterol Neb 3 ML IH SCH ×3 (17:27→20:49)
[2016-10-15] MEDS ORDERED: Melatonin 3 MG TABLET PO STA (00:46)
[2016-10-15] MEDS: Piperacillin/Tazobactam 3.375 GM in D5% in Water (Mini-Bag+) 100 ML IVPB SCH ×3 (02:53→20:25)
[2016-10-15] MEDS: Ipratropium/Albuterol Neb 3 ML IH SCH ×6 (04:06→20:20)
[2016-10-15 04:45] LABS: Basophils % 0.2 %; Hematocrit 42.1 % (35.3-44.9); Hemoglobin 13.3 g/dL (11.5-15.4); Immature Granulocytes % 1.2 % (0-4); Lymphocytes # 0.4 K/mcL (0.6-4.6); Lymphocytes % 8.5 %; Mean Corpuscular HGB Conc 31.6 g/dL (31.6-35.5); Mean Corpuscular Hemoglobin 27.7 pg (28.0-33.3); Mean Corpuscular Volume 87.7 fL (83.0-100.0); Mean Platelet Volume 12.1 fL (9.4-12.4); Monocytes # 0.1 K/mcL (0.0-1.3); Monocytes % 2.4 %; Neutrophils # 3.7 K/mcL (1.6-8.9); Platelet Count 126 K/mcL (140-400); Red Cell Distribution Width 18.3 % (11.5-14.5); Segmented Neutrophils % 87.7 %
[2016-10-15] MEDS: Nystatin POWDER 30 GM BOTTLE TP SCH ×4 (04:58→20:53)
[2016-10-15 05:07] LABS: BUN/Creatinine Ratio 17 (6-26); Blood Urea Nitrogen 14 mg/dL (7-20); Calcium 8.5 mg/dL (8.6-10.8); Carbon Dioxide 30 mEq/L (19-29); Chloride 96 mEq/L (98-109); Glucose 136 mg/dL (70-99); Osmolality,Calculated 287 (280-300); Phosphorous 3.5 mg/dL (2.3-4.7); Potassium 3.4 mEq/L (3.5-4.5); Sodium 137 mEq/L (136-145); eGFR For African Americans > 60 (> 60); eGFR For Non-African Americans > 60 (> 60)
[2016-10-15] MEDS: *HR* Heparin 5,000 UNIT/ML VIAL SQ SCH ×2 (05:45→17:06)
[2016-10-15] MEDS: methylPREDNISolone 125 MG/2 ML VIAL IVP SCH ×2 (05:50→17:04)
[2016-10-15] MEDS: amLODIPine 5 MG TABLET PO SCH (07:58)
[2016-10-15] MEDS: Metoprolol XL (24 HR) Succ 25 MG TAB.ER.24H PO SCH (07:58)
[2016-10-15] MEDS: Lisinopril 20 MG TABLET PO SCH (07:59)
[2016-10-15] MEDS: Aspirin Enteric Coated 81 MG Tablet PO SCH (07:59)
[2016-10-15] MEDS: Furosemide 40 MG/4 ML VIAL IVP SCH (08:14)
[2016-10-15] MEDS: Iron Polysaccharide Complex 150 MG CAPSULE PO SCH (08:28)
[2016-10-15] MEDS ORDERED: Haloperidol Lactate 5 MG/ML VIAL IM ONE (09:01)
[2016-10-15] MEDS ORDERED: Haloperidol Lactate 5 MG/ML VIAL ONE (09:03)
[2016-10-15] MEDS ORDERED: *HR* LORazepam 2 MG/ML VIAL IVP STA ×2 (09:33→13:26)
[2016-10-15] MEDS ORDERED: *HR* LORazepam 2 MG/ML VIAL ONE (09:35)
--- NOTE | 2016-10-15 10:33 | Internal Med Progress Note ---
Date of Encounter: 10/15/16 Time of Encounter: 08:05 - Assessment and plan (1) Acute respiratory distress Current Visit: Yes Status: Acute Assessment and plan: Likely Secondary to Volume overload and underlying PNA Concern for COPD exacerbation, started on systemic steroid yesterday and appears to be clinically improving Will continue steroids and abx Bronchodilator support O2 supplementation as needed will titrate down diuretic therapy will closely monitor respiratory status CTA chest negative for PE and improvement in pleural effusions Will continue IV abx for five days (2) Pneumonia Current Visit: Yes Status: Acute Assessment and plan: Pt from [place] will treat as HCAP f/u blood cultures de-escalate therapy as per cultures pt is afebrile and no leukocytosis reported however given worsening respiratory status and given CXR findings, will treat with empiric abx Qualifiers: Pneumonia type: due to unspecified organism Laterality: right Lung location: lower lobe of lung Qualified Code(s): J18.1 - Lobar pneumonia, unspecified organism (3) Change in mental state Current Visit: Yes Status: Acute Assessment and plan: Of unclear etiology can be secondary to underlying PNA will treat with empiric IV abx also appears to be a sundowning phenomenon, will increase Seroquel dose and try to avoid Benzos will closely monitor mental status. Qualifiers: Altered mental status type: unspecified Qualified Code(s): R41.82 - Altered mental status, unspecified (4) Acute bleeding Current Visit: Yes Status: Acute Assessment and plan: Resolved Repeat H&H within acceptable range (5) CRISTI (acute kidney injury) Current Visit: Yes Status: Acute (6) Dehydration Current Visit: Yes Status: Resolved (7) Generalized weakness Current Visit: Yes Status: Chronic Assessment and plan: Likely secondary to decreased PO intake pt tolerating PO intake well at this time Pt refused Physical therapy eval, will reattempt once mental status improves (8) DVT prophylaxis Current Visit: Yes Status: Acute Assessment and plan: Heparin sQ (9) Hypothyroidism Current Visit: Yes Status: Chronic Assessment and plan: continue Levothyroxine Qualifiers: Hypothyroidism type: unspecified Qualified Code(s): E03.9 - Hypothyroidism , unspecified (10) Hypertension Current Visit: Yes Status: Chronic Assessment and plan: BP within acceptable range continue home medications Repeat BP: 117/68 Qualifiers: Hypertension type: essential hypertension Qualified Code(s): I10 - Essential (primary) hypertension (11) Hypomagnesemia Current Visit: Yes Status: Resolved (12) Hypokalemia Current Visit: Yes Status: Acute Assessment and plan: K supplemented continue to monitor electrolytes and replace as needed - Subjective Interval history: Patient seen and examined. More awake and alert but confused and agitated. continues to refuse placement of Oxygen (NC, Bipap, NRB) and noted to be become hypoxic when not on O2 supplementation. Her O2 demand is decreased and currently saturating well on 5L O2. She is tolerating PO intake and was able to get to the bedside commode this morning and have a bowel movement. Overnight she was reported to pull on her santoyo catheter, which explains the hematuria noted. Due to severe agitation which is present despite Seroquel and Haldol administration and for patient's safety, Ativan was given. - Constitutional Vitals: Temp Pulse Resp BP Pulse Ox 97.0 F L 96 16 174/86 91 10/14/16 21:30 10/14/16 21:30 10/15/16 04:06 10/14/16 21:30 10/15/16 08:29 General appearance: Present: A&O X 1 (oriented to self, confused ), pleasant, no acute distress, answers questions appropriately - Head Head exam: Present: atraumatic, normocephalic - Eye Eye exam: Present: normal appearance, conjuntiva pink, sclera anicteric - Respiratory Respiratory exam: Present: CTAB. Absent: wheezes - Cardiovascular Cardiovascular exam: Present: RRR, +S1, +S2. Absent: diastolic murmur, gallop, rubs, systolic murmur - GI/Abdominal GI/Abdominal exam: Present: normal bowel sounds, soft, no peritoneal signs. Absent: distended, tenderness - Extremities Exam Extremities exam: Present: warm, radial pulses palpable and symetrical. Absent : calf tenderness Additional comments: s/p Rt BKA - Neurological Exam Neurological exam: Present: alert - Psychiatric Psychiatric exam: Present: agitated Internal Medicine: Result - Labs CBC & Chem 7: 10/15/16 04:32 10/15/16 04:32 Labs: Short CBC 10/15/16 Range/Units 04:32 WBC 4.2 L D (4.3-11.1) K/mcL Hgb 13.3 (11.5-15.4) g/dL Hct 42.1 (35.3-44.9) % Plt Count 126 L (140-400) K/mcL Neutrophils # 3.7 (1.6-8.9) K/mcL BMP 10/15/16 04:32 Sodium 137 Potassium 3.4 L Chloride 96 L Carbon Dioxide 30 H BUN 14 Creatinine 0.81 Glucose 136 H Calcium 8.5 L - ABG Interpretation ABG results: PT/INR, D-dimer PT 14.4 Seconds (9.4-12.1) H 10/11/16 06:12 D-Dimer 2183 ng/mLFEU (0-500) H 10/11/16 06:12 - Impressions Impressions Chest CTA 10/14/16 08:59 IMPRESSION: 1. No acute pulmonary emboli, aortic dissection or aneurysm. Severe motion artifact is however quite limiting. 2. Moderate bibasilar atelectasis and trace pleural effusions 3. Scattered mediastinal adenopathy possibly reactive but indeterminate. D/ / Georgi Shields MD / Georgi Shields MD Interpreting Provider: Georgi Shields MD Consult Discharge Plan - Plan Referrals: NO,PCP [Primary Care Provider] - (Patient from [facility] and will follow up with [facility] PCP)
[2016-10-15] MEDS ORDERED: Acetaminophen 325 MG TABLET PO PRN (10:55)
[2016-10-15] MEDS ORDERED: Potassium Effervescent 25 MEQ TABLET.EFF PO ONE (11:10)
[2016-10-15] MEDS: Vancomycin 1,250 MG in D5% in Water 250 ML IVPB SCH (16:05)
[2016-10-16] MEDS: Ipratropium/Albuterol Neb 3 ML IH SCH ×7 (00:25→23:10)
[2016-10-16] MEDS: Piperacillin/Tazobactam 3.375 GM in D5% in Water (Mini-Bag+) 100 ML IVPB SCH ×3 (02:34→20:44)
[2016-10-16 04:36] LABS: Blood Urea Nitrogen 16 mg/dL (7-20); Carbon Dioxide 31 mEq/L (19-29); Chloride 95 mEq/L (98-109); Potassium 3.4 mEq/L (3.5-4.5); Sodium 137 mEq/L (136-145)
[2016-10-16 04:37] LABS: BUN/Creatinine Ratio 19 (6-26); Calcium 8.8 mg/dL (8.6-10.8); Glucose 122 mg/dL (70-99); Magnesium 1.8 mg/dL (1.6-2.6); Osmolality,Calculated 286 (280-300); Phosphorous 2.8 mg/dL (2.3-4.7); eGFR For African Americans > 60 (> 60); eGFR For Non-African Americans > 60 (> 60)
[2016-10-16 04:39] LABS: Basophils % 0.3 %; Hematocrit 43.9 % (35.3-44.9); Hemoglobin 14.1 g/dL (11.5-15.4); Immature Granulocytes % 0.4 % (0-4); Lymphocytes # 0.4 K/mcL (0.6-4.6); Lymphocytes % 5.7 %; Mean Corpuscular HGB Conc 32.1 g/dL (31.6-35.5); Mean Corpuscular Hemoglobin 28.5 pg (28.0-33.3); Mean Corpuscular Volume 88.7 fL (83.0-100.0); Monocytes # 0.5 K/mcL (0.0-1.3); Monocytes % 6.8 %; Neutrophils # 6.7 K/mcL (1.6-8.9); Platelet Count 163 K/mcL (140-400); Red Blood Count 4.95 M/mcL (3.82-4.97); Red Cell Distribution Width 18.4 % (11.5-14.5); Segmented Neutrophils % 86.8 %
[2016-10-16] MEDS: *HR* Heparin 5,000 UNIT/ML VIAL SQ SCH ×2 (06:42→17:30)
[2016-10-16] MEDS: methylPREDNISolone 125 MG/2 ML VIAL IVP SCH ×2 (06:42→17:30)
[2016-10-16] MEDS ORDERED: Aminoglycoside Consult 1 EACH MC ONE (07:44)
[2016-10-16] MEDS ORDERED: Potassium Chloride Elixir 20 MEQ/15 ML UDC PO ONE (08:27)
[2016-10-16] MEDS: amLODIPine 5 MG TABLET PO SCH (09:11)
[2016-10-16] MEDS: Aspirin Enteric Coated 81 MG Tablet PO SCH (09:11)
[2016-10-16] MEDS: Lisinopril 20 MG TABLET PO SCH (09:12)
[2016-10-16] MEDS: Furosemide 40 MG/4 ML VIAL IVP SCH (09:12)
[2016-10-16] MEDS: Iron Polysaccharide Complex 150 MG CAPSULE PO SCH (09:13)
[2016-10-16] MEDS: Metoprolol XL (24 HR) Succ 25 MG TAB.ER.24H PO SCH (09:16)
[2016-10-16] MEDS: Nystatin POWDER 30 GM BOTTLE TP SCH (09:17)
[2016-10-16] MEDS ORDERED: Acetaminophen 325 MG TABLET PO PRN (10:02)
--- NOTE | 2016-10-16 14:23 | Internal Med Progress Note ---
Date of Encounter: 10/16/16 Time of Encounter: 09:35 - Assessment and plan (1) Acute respiratory distress Current Visit: Yes Status: Acute Assessment and plan: Likely Secondary to Volume overload and underlying PNA Concern for COPD exacerbation, started on systemic steroid yesterday and appears to be clinically improving Will continue steroids and abx Bronchodilator support O2 supplementation as needed will titrate down diuretic therapy will closely monitor respiratory status CTA chest negative for PE and improvement in pleural effusions Will continue IV abx for seven days De-escalated abx therapy (2) Pneumonia Current Visit: Yes Status: Acute Assessment and plan: Pt from [place] will treat as HCAP f/u blood cultures de-escalate abx therapy, will treat for 7 days pt is afebrile and no leukocytosis reported however given worsening respiratory status and given CXR findings, will treat with empiric abx Qualifiers: Pneumonia type: due to unspecified organism Laterality: right Lung location: lower lobe of lung Qualified Code(s): J18.1 - Lobar pneumonia, unspecified organism (3) Change in mental state Current Visit: Yes Status: Acute Assessment and plan: Of unclear etiology can be secondary to underlying PNA will treat with empiric IV abx also appears to be a sundowning phenomenon Continue Seroquel dose and try to avoid Benzos will closely monitor mental status. Qualifiers: Altered mental status type: unspecified Qualified Code(s): R41.82 - Altered mental status, unspecified (4) Acute bleeding Current Visit: Yes Status: Acute Assessment and plan: Resolved Repeat H&H within acceptable range (5) CRISTI (acute kidney injury) Current Visit: Yes Status: Resolved (6) Dehydration Current Visit: Yes Status: Resolved (7) Generalized weakness Current Visit: Yes Status: Chronic Assessment and plan: Likely secondary to decreased PO intake pt tolerating PO intake well at this time Pt refused Physical therapy eval, will reattempt once mental status improves (8) DVT prophylaxis Current Visit: Yes Status: Acute Assessment and plan: Heparin sQ (9) Hypothyroidism Current Visit: Yes Status: Chronic Assessment and plan: continue Levothyroxine Qualifiers: Hypothyroidism type: unspecified Qualified Code(s): E03.9 - Hypothyroidism , unspecified (10) Hypertension Current Visit: Yes Status: Chronic Assessment and plan: BP within acceptable range continue home medications Qualifiers: Hypertension type: essential hypertension Qualified Code(s): I10 - Essential (primary) hypertension (11) Hypomagnesemia Current Visit: Yes Status: Resolved (12) Hypokalemia Current Visit: Yes Status: Acute Assessment and plan: K supplemented continue to monitor electrolytes and replace as needed - Subjective Interval history: Patient seen and examined. Awake and alert but confused and agitated. Continues to refuse O2 supplementation support. However responding better to Seroquel therapy and decrease in O2 demand noted. - Constitutional Vitals: Temp Pulse Resp BP Pulse Ox 98.2 F 74 16 137/75 91 10/16/16 07:09 10/16/16 11:29 10/16/16 11:29 10/16/16 07:09 10/16/16 11:29 General appearance: Present: A&O X 1 (oriented to self, confused ), pleasant, no acute distress, answers questions appropriately - Head Head exam: Present: atraumatic, normocephalic - Eye Eye exam: Present: normal appearance, conjuntiva pink, sclera anicteric - Respiratory Respiratory exam: Present: CTAB. Absent: respiratory distress, wheezes - Cardiovascular Cardiovascular exam: Present: RRR, +S1, +S2. Absent: diastolic murmur, gallop, rubs, systolic murmur - GI/Abdominal GI/Abdominal exam: Present: normal bowel sounds, soft, no peritoneal signs. Absent: distended, tenderness - Extremities Exam Extremities exam: Present: warm, radial pulses palpable and symetrical. Absent : calf tenderness, cyanotic, pedal edema Additional comments: s/p right BKA - Neurological Exam Neurological exam: Present: alert - Psychiatric Psychiatric exam: Present: agitated Internal Medicine: Result - Labs CBC & Chem 7: 10/16/16 03:58 10/16/16 03:58 Labs: Short CBC 10/16/16 Range/Units 03:58 WBC 7.7 D (4.3-11.1) K/mcL Hgb 14.1 (11.5-15.4) g/dL Hct 43.9 (35.3-44.9) % Plt Count 163 (140-400) K/mcL Neutrophils # 6.7 (1.6-8.9) K/mcL BMP 10/16/16 03:58 Sodium 137 Potassium 3.4 L Chloride 95 L Carbon Dioxide 31 H BUN 16 Creatinine 0.84 Glucose 122 H Calcium 8.8 - ABG Interpretation ABG results: PT/INR, D-dimer PT 14.4 Seconds (9.4-12.1) H 10/11/16 06:12 D-Dimer 2183 ng/mLFEU (0-500) H 10/11/16 06:12 Consult Discharge Plan - Plan Referrals: NO,PCP [Primary Care Provider] - (Patient from [facility] and will follow up with [facility] PCP)
[2016-10-16] MEDS ORDERED: *HR* LORazepam 2 MG/ML VIAL IVP ONE (15:32)
[2016-10-16] MEDS: Vancomycin 1,250 MG in D5% in Water 250 ML IVPB SCH (17:41)
[2016-10-17] MEDS: Ipratropium/Albuterol Neb 3 ML IH SCH ×5 (04:36→21:07)
[2016-10-17 07:26] LABS: Basophils % 0.1 %; Hematocrit 43.8 % (35.3-44.9); Immature Granulocytes % 0.4 % (0-4); Lymphocytes # 0.5 K/mcL (0.6-4.6); Lymphocytes % 5.7 %; Mean Corpuscular Hemoglobin 28.7 pg (28.0-33.3); Mean Corpuscular Volume 89.8 fL (83.0-100.0); Mean Platelet Volume 13.1 fL (9.4-12.4); Monocytes # 0.8 K/mcL (0.0-1.3); Monocytes % 8.8 %; Neutrophils # 7.6 K/mcL (1.6-8.9); Platelet Count 177 K/mcL (140-400); Red Blood Count 4.88 M/mcL (3.82-4.97); Red Cell Distribution Width 18.9 % (11.5-14.5)
[2016-10-17 07:45] LABS: BUN/Creatinine Ratio 24 (6-26); Blood Urea Nitrogen 22 mg/dL (7-20); Calcium 8.7 mg/dL (8.6-10.8); Carbon Dioxide 29 mEq/L (19-29); Chloride 98 mEq/L (98-109); Glucose 101 mg/dL (70-99); Magnesium 1.9 mg/dL (1.6-2.6); Osmolality,Calculated 289 (280-300); Phosphorous 3.7 mg/dL (2.3-4.7); Sodium 138 mEq/L (136-145); eGFR For African Americans > 60 (> 60); eGFR For Non-African Americans > 60 (> 60)
[2016-10-17] MEDS: methylPREDNISolone 125 MG/2 ML VIAL IVP SCH (08:00)
[2016-10-17] MEDS: *HR* Heparin 5,000 UNIT/ML VIAL SQ SCH ×2 (08:02→18:26)
[2016-10-17] MEDS: Iron Polysaccharide Complex 150 MG CAPSULE PO SCH (10:15)
[2016-10-17] MEDS: amLODIPine 5 MG TABLET PO SCH (10:16)
[2016-10-17] MEDS: Aspirin Enteric Coated 81 MG Tablet PO SCH (10:16)
[2016-10-17] MEDS: Metoprolol XL (24 HR) Succ 25 MG TAB.ER.24H PO SCH (10:16)
[2016-10-17] MEDS: Doxycycline 100 MG CAPSULE PO SCH ×2 (10:16→21:19)
[2016-10-17] MEDS: Lisinopril 20 MG TABLET PO SCH (10:16)
[2016-10-17] MEDS: Furosemide 40 MG/4 ML VIAL IVP SCH (10:17)
--- NOTE | 2016-10-17 11:03 | Internal Med Progress Note ---
Date of Encounter: 10/17/16 Time of Encounter: 11:01 - Assessment and plan (1) Acute respiratory distress Current Visit: Yes Status: Acute Assessment and plan: Likely Secondary to Volume overload and underlying PNA Concern for COPD exacerbation, started on systemic steroid yesterday and appears to be clinically improving Will continue steroids and abx, will changed to Prednisone and continue therapy for 7days. Bronchodilator support O2 supplementation as needed will titrate down diuretic therapy will closely monitor respiratory status CTA chest negative for PE and improvement in pleural effusions Will continue IV abx for seven days De-escalated abx therapy (2) Pneumonia Current Visit: Yes Status: Acute Assessment and plan: Pt from [place] will treat as HCAP f/u blood cultures de-escalate abx therapy, will treat for 7 days pt is afebrile and no leukocytosis reported however given worsening respiratory status and given CXR findings, will treat with empiric abx Qualifiers: Pneumonia type: due to unspecified organism Laterality: right Lung location: lower lobe of lung Qualified Code(s): J18.1 - Lobar pneumonia, unspecified organism (3) Change in mental state Current Visit: Yes Status: Acute Assessment and plan: Of unclear etiology can be secondary to underlying PNA will treat with empiric IV abx also appears to be a sundowning phenomenon Continue Seroquel dose and try to avoid Benzos will closely monitor mental status. Mental status improved with Seroquel, will continue Qualifiers: Altered mental status type: unspecified Qualified Code(s): R41.82 - Altered mental status, unspecified (4) Acute bleeding Current Visit: Yes Status: Resolved (5) CRISTI (acute kidney injury) Current Visit: Yes Status: Resolved (6) Dehydration Current Visit: Yes Status: Resolved (7) Generalized weakness Current Visit: Yes Status: Chronic Assessment and plan: Likely secondary to decreased PO intake pt tolerating PO intake well at this time Pt refused Physical therapy eval, will reattempt once mental status improves (8) DVT prophylaxis Current Visit: Yes Status: Acute Assessment and plan: Heparin sQ (9) Hypothyroidism Current Visit: Yes Status: Chronic Assessment and plan: continue Levothyroxine Qualifiers: Hypothyroidism type: unspecified Qualified Code(s): E03.9 - Hypothyroidism , unspecified (10) Hypertension Current Visit: Yes Status: Chronic Assessment and plan: BP within acceptable range continue home medications Qualifiers: Hypertension type: essential hypertension Qualified Code(s): I10 - Essential (primary) hypertension (11) Hypomagnesemia Current Visit: Yes Status: Resolved (12) Hypokalemia Current Visit: Yes Status: Resolved - Subjective Interval history: Pt seen and examined at bedside. rEsting comfortably in bed and noted to be calm and tolerating nasal cannula. reports of feeling better. O2 requirement decreasing. - Constitutional Vitals: Temp Pulse Resp BP Pulse Ox 97.9 F 71 14 142/72 96 10/17/16 08:26 10/17/16 08:26 10/17/16 08:26 10/17/16 08:26 10/17/16 08:26 General appearance: Present: A&O X 2, pleasant, no acute distress, answers questions appropriately - Head Head exam: Present: atraumatic, normocephalic - Eye Eye exam: Present: normal appearance, conjuntiva pink, sclera anicteric - Respiratory Respiratory exam: Present: CTAB. Absent: accessory muscle use, rales, rhonchi, wheezes - Cardiovascular Cardiovascular exam: Present: RRR, +S1, +S2. Absent: diastolic murmur, gallop, rubs, systolic murmur - GI/Abdominal GI/Abdominal exam: Present: normal bowel sounds, soft, no peritoneal signs. Absent: distended, tenderness - Extremities Exam Extremities exam: Present: warm, radial pulses palpable and symetrical. Absent : calf tenderness, cyanotic, pedal edema Additional comments: s/p right BKA - Neurological Exam Neurological exam: Present: alert - Psychiatric Psychiatric exam: Present: normal affect, normal mood Internal Medicine: Result - Labs CBC & Chem 7: 10/17/16 06:32 10/17/16 06:32 Labs: Short CBC 10/17/16 Range/Units 06:32 WBC 8.9 (4.3-11.1) K/mcL Hgb 14.0 (11.5-15.4) g/dL Hct 43.8 (35.3-44.9) % Plt Count 177 (140-400) K/mcL Neutrophils # 7.6 (1.6-8.9) K/mcL BMP 10/17/16 06:32 Sodium 138 Potassium 4.0 Chloride 98 Carbon Dioxide 29 BUN 22 H Creatinine 0.91 Glucose 101 H Calcium 8.7 - ABG Interpretation ABG results: PT/INR, D-dimer PT 14.4 Seconds (9.4-12.1) H 10/11/16 06:12 D-Dimer 2183 ng/mLFEU (0-500) H 10/11/16 06:12 Consult Discharge Plan - Plan Referrals: NO,PCP [Primary Care Provider] - (Patient from [facility] and will follow up with F PCP)
[2016-10-17] MEDS: Nystatin POWDER 30 GM BOTTLE TP SCH ×3 (11:20→21:20)
[2016-10-17 12:42] LABS: Bilirubin,Urine Small (Negative); Blood,Urine Large (Negative); Clarity,Urine Turbid (Clear); Color,Urine Red (Yellow); Glucose,Urine (UA) Normal (Normal); Ketones,Urine Negative (Negative); Leukocyte Esterase,Urine Moderate (Negative); Nitrite,Urine Negative (Negative); Protein,Urine 100 mg/dL (Neg-Trace); Specific Gravity,Urine 1.027 (1.010-1.025)
[2016-10-17 12:44] LABS: Hyaline Casts,Urine None Seen per lpf (None-Few); Squamous Epithelial Cell,Urine Many per lpf (None-Few); WBC,Urine 30-50 per hpf (0-3)
[2016-10-17 12:53] LABS: RBC,Urine TNTC per hpf (0-3)
[2016-10-17 12:54] LABS: Bacteria,Urine Moderate per hpf (None-Few)
[2016-10-18] MEDS: Ipratropium/Albuterol Neb 3 ML IH SCH ×6 (00:08→21:37)
[2016-10-18] MEDS: Ketoconazole Shampoo 120 ML BOTTLE TP SCH (02:47)
[2016-10-18 05:18] LABS: Basophils % 0.2 %; Eosinophils # 0.1 K/mcL (0.0-0.6); Hematocrit 44.9 % (35.3-44.9); Hemoglobin 14.1 g/dL (11.5-15.4); Immature Granulocytes % 1.1 % (0-4); Lymphocytes # 1.3 K/mcL (0.6-4.6); Lymphocytes % 12.3 %; Mean Corpuscular HGB Conc 31.4 g/dL (31.6-35.5); Mean Corpuscular Hemoglobin 28.4 pg (28.0-33.3); Mean Corpuscular Volume 90.5 fL (83.0-100.0); Mean Platelet Volume 12.5 fL (9.4-12.4); Monocytes % 10.2 %; Neutrophils # 7.7 K/mcL (1.6-8.9); Platelet Count 182 K/mcL (140-400); Red Blood Count 4.96 M/mcL (3.82-4.97); Red Cell Distribution Width 19.5 % (11.5-14.5); Segmented Neutrophils % 75.2 %
[2016-10-18] MEDS: *HR* Heparin 5,000 UNIT/ML VIAL SQ SCH ×2 (05:29→17:30)
[2016-10-18 05:39] LABS: BUN/Creatinine Ratio 31 (6-26); Blood Urea Nitrogen 27 mg/dL (7-20); Calcium 8.3 mg/dL (8.6-10.8); Carbon Dioxide 31 mEq/L (19-29); Chloride 97 mEq/L (98-109); Glucose 80 mg/dL (70-99); Magnesium 1.9 mg/dL (1.6-2.6); Osmolality,Calculated 290 (280-300); Phosphorous 2.8 mg/dL (2.3-4.7); Potassium 3.5 mEq/L (3.5-4.5); Sodium 138 mEq/L (136-145); eGFR For African Americans > 60 (> 60); eGFR For Non-African Americans > 60 (> 60)
[2016-10-18] MEDS: Aspirin Enteric Coated 81 MG Tablet PO SCH (09:33)
[2016-10-18] MEDS: Furosemide 20 MG TABLET PO SCH ×2 (09:33→17:14)
[2016-10-18] MEDS: Lisinopril 20 MG TABLET PO SCH (09:33)
[2016-10-18] MEDS: predniSONE 20 MG TABLET PO SCH (09:34)
[2016-10-18] MEDS: Metoprolol XL (24 HR) Succ 25 MG TAB.ER.24H PO SCH (09:34)
[2016-10-18] MEDS: Doxycycline 100 MG CAPSULE PO SCH ×2 (09:34→22:00)
[2016-10-18] MEDS: Iron Polysaccharide Complex 150 MG CAPSULE PO SCH (09:34)
[2016-10-18] MEDS: amLODIPine 5 MG TABLET PO SCH (09:35)
[2016-10-18] MEDS: Nystatin POWDER 30 GM BOTTLE TP SCH ×2 (09:40→22:08)
--- NOTE | 2016-10-18 10:13 | Internal Med Progress Note ---
Date of Encounter: 10/18/16 Time of Encounter: 09:10 - Assessment and plan (1) Acute respiratory distress Current Visit: Yes Status: Acute Assessment and plan: Likely Secondary to Volume overload, underlying PNA, and COPD exacerbation Clinically improving Noted to have decrease in O2 demand Will likely be discharged to Rehab with O2 continue steroids and bronchodilator support Day 6/7 of abx continue to monitor respiratory status (2) Pneumonia Current Visit: Yes Status: Acute Assessment and plan: plan as listed above Qualifiers: Pneumonia type: due to unspecified organism Laterality: right Lung location: lower lobe of lung Qualified Code(s): J18.1 - Lobar pneumonia, unspecified organism (3) Change in mental state Current Visit: Yes Status: Acute Assessment and plan: Mental status improved and AAO x 3 Changed Seroquel to 25mg QHS and PRN during the day responding well to seroquel no overnight issues reported. Qualifiers: Altered mental status type: unspecified Qualified Code(s): R41.82 - Altered mental status, unspecified (4) Acute bleeding Current Visit: Yes Status: Resolved (5) CRISTI (acute kidney injury) Current Visit: Yes Status: Resolved (6) Dehydration Current Visit: Yes Status: Resolved (7) Generalized weakness Current Visit: Yes Status: Chronic Assessment and plan: PT/OT to re-evaluated the patient (8) DVT prophylaxis Current Visit: Yes Status: Acute (9) Hypothyroidism Current Visit: Yes Status: Chronic Assessment and plan: continue Levothyroxine Qualifiers: Hypothyroidism type: unspecified Qualified Code(s): E03.9 - Hypothyroidism , unspecified (10) Hypertension Current Visit: Yes Status: Chronic Assessment and plan: BP within acceptable range continue home medications Qualifiers: Hypertension type: essential hypertension Qualified Code(s): I10 - Essential (primary) hypertension (11) Hypomagnesemia Current Visit: Yes Status: Resolved (12) Hypokalemia Current Visit: Yes Status: Resolved - Subjective Interval history: Patient seen and examined at bedside. Resting comfortably in bed and mental status back to baseline. She is AAO x 3 and is calm and tolerating O2 therapy well. Reports of having 30+ years of smoking history and states she used to wear Oxygen in the past but stopped for unknown reason. At this time she is saturating 90% on 5L, will continue to closely monitor. - Constitutional Vitals: Temp Pulse Resp BP Pulse Ox 97.7 F 67 18 136/72 92 10/18/16 07:32 10/18/16 07:32 10/18/16 07:32 10/18/16 07:32 10/18/16 09:59 General appearance: Present: cooperative, A&O X 3, pleasant, no acute distress, answers questions appropriately - Head Head exam: Present: atraumatic, normocephalic - Eye Eye exam: Present: normal appearance, conjuntiva pink, sclera anicteric - Respiratory Respiratory exam: Absent: respiratory distress, wheezes - Cardiovascular Cardiovascular exam: Present: RRR, +S1, +S2 - GI/Abdominal GI/Abdominal exam: Present: normal bowel sounds, soft. Absent: distended, tenderness - Extremities Exam Extremities exam: Present: warm, radial pulses palpable and symetrical (s/p right BKA ). Absent: pedal edema - Neurological Exam Neurological exam: Present: alert, oriented X3 - Psychiatric Psychiatric exam: Present: normal affect, normal mood Internal Medicine: Result - Labs CBC & Chem 7: 10/18/16 04:53 10/18/16 04:53 Labs: Short CBC 10/18/16 Range/Units 04:53 WBC 10.2 (4.3-11.1) K/mcL Hgb 14.1 (11.5-15.4) g/dL Hct 44.9 (35.3-44.9) % Plt Count 182 (140-400) K/mcL Neutrophils # 7.7 (1.6-8.9) K/mcL BMP 10/18/16 04:53 Sodium 138 Potassium 3.5 Chloride 97 L Carbon Dioxide 31 H BUN 27 H Creatinine 0.86 Glucose 80 Calcium 8.3 L Urine 10/17/16 Range/Units 12:25 Urine Color Red A (Yellow) Urine Clarity Turbid A (Clear) Urine pH 6.0 (5.0-8.0) pH Units Ur Specific [place] 1.027 H (1.010-1.025) Urine Protein 100 H (Neg-Trace) mg/dL Urine Glucose (UA) Normal (Normal) mg/dL - ABG Interpretation ABG results: PT/INR, D-dimer PT 14.4 Seconds (9.4-12.1) H 10/11/16 06:12 D-Dimer 2183 ng/mLFEU (0-500) H 10/11/16 06:12 Consult Discharge Plan - Plan Referrals: NO,PCP [Primary Care Provider] - (Patient from [facility] and will follow up with F PCP)
[2016-10-19] MEDS: Ipratropium/Albuterol Neb 3 ML IH SCH ×3 (00:18→08:53)
[2016-10-19 04:58] LABS: Basophils % 0.3 %; Eosinophils % 0.3 %; Hematocrit 46.6 % (35.3-44.9); Hemoglobin 14.8 g/dL (11.5-15.4); Lymphocytes # 1.1 K/mcL (0.6-4.6); Lymphocytes % 10.9 %; Mean Corpuscular HGB Conc 31.8 g/dL (31.6-35.5); Mean Corpuscular Hemoglobin 28.1 pg (28.0-33.3); Mean Corpuscular Volume 88.6 fL (83.0-100.0); Mean Platelet Volume 12.6 fL (9.4-12.4); Monocytes # 0.9 K/mcL (0.0-1.3); Monocytes % 9.1 %; Platelet Count 178 K/mcL (140-400); Red Blood Count 5.26 M/mcL (3.82-4.97); Red Cell Distribution Width 19.1 % (11.5-14.5); Segmented Neutrophils % 78.4 %
[2016-10-19 05:14] LABS: BUN/Creatinine Ratio 30 (6-26); Blood Urea Nitrogen 24 mg/dL (7-20); Calcium 8.5 mg/dL (8.6-10.8); Carbon Dioxide 32 mEq/L (19-29); Chloride 97 mEq/L (98-109); Glucose 90 mg/dL (70-99); Magnesium 1.8 mg/dL (1.6-2.6); Osmolality,Calculated 292 (280-300); Phosphorous 3.3 mg/dL (2.3-4.7); Potassium 3.6 mEq/L (3.5-4.5); Sodium 139 mEq/L (136-145); eGFR For African Americans > 60 (> 60); eGFR For Non-African Americans > 60 (> 60)
[2016-10-19] MEDS: *HR* Heparin 5,000 UNIT/ML VIAL SQ SCH ×2 (05:29→18:33)
[2016-10-19] MEDS: Furosemide 20 MG TABLET PO SCH ×2 (08:38→18:37)
[2016-10-19] MEDS: Aspirin Enteric Coated 81 MG Tablet PO SCH (08:38)
[2016-10-19] MEDS: Iron Polysaccharide Complex 150 MG CAPSULE PO SCH (08:38)
[2016-10-19] MEDS: amLODIPine 5 MG TABLET PO SCH (08:38)
[2016-10-19] MEDS: Metoprolol XL (24 HR) Succ 25 MG TAB.ER.24H PO SCH (08:39)
[2016-10-19] MEDS: Lisinopril 20 MG TABLET PO SCH (08:39)
[2016-10-19] MEDS: predniSONE 20 MG TABLET PO SCH (08:44)
[2016-10-19] MEDS: Doxycycline 100 MG CAPSULE PO SCH ×2 (08:44→20:02)
[2016-10-19] MEDS: Nystatin POWDER 30 GM BOTTLE TP SCH ×2 (08:52→20:03)
[2016-10-19] MEDS ORDERED: Ipratropium/Albuterol Neb 3 ML IH PRN (09:41)
--- NOTE | 2016-10-19 09:58 | Internal Med Progress Note ---
Date of Encounter: 10/19/16 Time of Encounter: 09:51 - Assessment and plan (1) Acute respiratory distress Current Visit: Yes Status: Acute Assessment and plan: Likely Secondary to Volume overload, underlying PNA, and COPD exacerbation Clinically improving Noted to have decrease in O2 demand Will likely be discharged to Rehab with O2 continue steroids and bronchodilator support Day 7 of abx continue to monitor respiratory status Likely discharge to [place] in am if remains clinically stable. (2) Pneumonia Current Visit: Yes Status: Acute Assessment and plan: plan as listed above Qualifiers: Pneumonia type: due to unspecified organism Laterality: right Lung location: lower lobe of lung Qualified Code(s): J18.1 - Lobar pneumonia, unspecified organism (3) Change in mental state Current Visit: Yes Status: Acute Assessment and plan: Mental status improved and AAO x 3 Changed Seroquel to PRN, patient doing well without requiring any PRN doses no overnight issues reported. Qualifiers: Altered mental status type: unspecified Qualified Code(s): R41.82 - Altered mental status, unspecified (4) Acute bleeding Current Visit: Yes Status: Resolved Assessment and plan: Resolved Repeat H&H within acceptable range (5) CRISTI (acute kidney injury) Current Visit: Yes Status: Resolved (6) Dehydration Current Visit: Yes Status: Resolved (7) Generalized weakness Current Visit: Yes Status: Chronic (8) DVT prophylaxis Current Visit: Yes Status: Acute Assessment and plan: Heparin sQ (9) Hypothyroidism Current Visit: Yes Status: Chronic Assessment and plan: continue Levothyroxine Qualifiers: Hypothyroidism type: unspecified Qualified Code(s): E03.9 - Hypothyroidism , unspecified (10) Hypertension Current Visit: Yes Status: Chronic Assessment and plan: BP within acceptable range continue home medications Qualifiers: Hypertension type: essential hypertension Qualified Code(s): I10 - Essential (primary) hypertension (11) Hypomagnesemia Current Visit: Yes Status: Resolved (12) Hypokalemia Current Visit: Yes Status: Resolved - Subjective Interval history: Patient seen and examined at bedside. Resting in bed, currently saturating well on 4L NC. AAO x 3 and denies any discomfort. Noted to have decrease in appetite with barely eating her meals. I spoke with Patient's daughter Sharla Haile , ) who states that she is usually a good eater but tends to eat less when she is ill. Pt's family was updates on patient's status and discharge planning. - Constitutional Vitals: Temp Pulse Resp BP Pulse Ox 97.5 F L 55 20 161/68 93 10/19/16 06:48 10/19/16 06:48 10/19/16 08:53 10/19/16 06:48 10/19/16 08:53 General appearance: Present: cooperative, A&O X 3, pleasant, no acute distress, answers questions appropriately - Head Head exam: Present: atraumatic, normocephalic - Eye Eye exam: Present: normal appearance, conjuntiva pink, sclera anicteric - Respiratory Respiratory exam: Present: CTAB. Absent: accessory muscle use, rales, rhonchi, wheezes - Cardiovascular Cardiovascular exam: Present: RRR, +S1, +S2. Absent: diastolic murmur, gallop, rubs, systolic murmur - GI/Abdominal GI/Abdominal exam: Present: normal bowel sounds, soft, no peritoneal signs. Absent: distended, tenderness - Extremities Exam Extremities exam: Present: warm, radial pulses palpable and symetrical. Absent : calf tenderness, cyanotic, pedal edema Additional comments: s/p right BKA - Neurological Exam Neurological exam: Present: alert, oriented X3 - Psychiatric Psychiatric exam: Present: normal affect, normal mood Internal Medicine: Result - Labs CBC & Chem 7: 10/19/16 04:21 10/19/16 04:21 Labs: Short CBC 10/19/16 Range/Units 04:21 WBC 10.2 (4.3-11.1) K/mcL Hgb 14.8 (11.5-15.4) g/dL Hct 46.6 H (35.3-44.9) % Plt Count 178 (140-400) K/mcL Neutrophils # 8.0 (1.6-8.9) K/mcL BMP 10/19/16 04:21 Sodium 139 Potassium 3.6 Chloride 97 L Carbon Dioxide 32 H BUN 24 H Creatinine 0.80 Glucose 90 Calcium 8.5 L - ABG Interpretation ABG results: PT/INR, D-dimer PT 14.4 Seconds (9.4-12.1) H 10/11/16 06:12 D-Dimer 2183 ng/mLFEU (0-500) H 10/11/16 06:12 Consult Discharge Plan - Plan Referrals: NO,PCP [Primary Care Provider] - (Patient from [facility] and will follow up with F PCP)
[2016-10-20] MEDS: *HR* Heparin 5,000 UNIT/ML VIAL SQ SCH ×2 (05:57→17:08)
[2016-10-20] MEDS: Iron Polysaccharide Complex 150 MG CAPSULE PO SCH (09:38)
[2016-10-20] MEDS: predniSONE 20 MG TABLET PO SCH (09:39)
[2016-10-20] MEDS: Metoprolol XL (24 HR) Succ 25 MG TAB.ER.24H PO SCH (09:40)
[2016-10-20] MEDS: Furosemide 20 MG TABLET PO SCH ×2 (09:40→17:08)
[2016-10-20] MEDS: Aspirin Enteric Coated 81 MG Tablet PO SCH (09:41)
[2016-10-20] MEDS: Doxycycline 100 MG CAPSULE PO SCH (09:42)
[2016-10-20] MEDS: Nystatin POWDER 30 GM BOTTLE TP SCH ×2 (09:42→20:40)
[2016-10-20] MEDS: amLODIPine 5 MG TABLET PO SCH (09:53)
[2016-10-20] MEDS: Lisinopril 20 MG TABLET PO SCH (09:54)
[2016-10-20] MEDS ORDERED: Ondansetron 4 MG/2 ML VIAL IVP PRN (10:00)
[2016-10-20] MEDS ORDERED: Ondansetron 4 MG/2 ML VIAL ONE (10:02)
--- NOTE | 2016-10-20 10:22 | Internal Med Progress Note ---
Date of Encounter: 10/20/16 Time of Encounter: 10:17 - Assessment and plan (1) Acute respiratory distress Current Visit: Yes Status: Acute Assessment and plan: Likely Secondary to Volume overload, underlying PNA, and COPD exacerbation Clinically improving Will likely be discharged to Rehab with O2 Currently saturating well on 2.5LNC continue steroids and bronchodilator support Finished 7days of of abx continue to monitor respiratory status Likely discharge to [place] in am if remains clinically stable. Will start Zofran 4mg IV q6h prn nausea (2) Pneumonia Current Visit: Yes Status: Acute Assessment and plan: plan as listed above Qualifiers: Pneumonia type: due to unspecified organism Laterality: right Lung location: lower lobe of lung Qualified Code(s): J18.1 - Lobar pneumonia, unspecified organism (3) Change in mental state Current Visit: Yes Status: Acute Assessment and plan: Mental status improved and AAO x 3 Changed Seroquel to PRN, patient doing well without requiring any PRN doses no overnight issues reported. Qualifiers: Altered mental status type: unspecified Qualified Code(s): R41.82 - Altered mental status, unspecified (4) Acute bleeding Current Visit: Yes Status: Resolved Assessment and plan: Resolved H&H within acceptable range (5) CRISTI (acute kidney injury) Current Visit: Yes Status: Resolved Assessment and plan: Resolved Renal function back to baseline continue home medications (6) Dehydration Current Visit: Yes Status: Resolved (7) Generalized weakness Current Visit: Yes Status: Chronic (8) DVT prophylaxis Current Visit: Yes Status: Acute Assessment and plan: Heparin sQ (9) Hypothyroidism Current Visit: Yes Status: Chronic Assessment and plan: continue Levothyroxine Qualifiers: Hypothyroidism type: unspecified Qualified Code(s): E03.9 - Hypothyroidism , unspecified (10) Hypertension Current Visit: Yes Status: Chronic Assessment and plan: Noted to be hypertensive this morning Will repeat BP once she receives all of her antihypertensive medications Will adjust medications as needed Qualifiers: Hypertension type: essential hypertension Qualified Code(s): I10 - Essential (primary) hypertension (11) Hypomagnesemia Current Visit: Yes Status: Resolved (12) Hypokalemia Current Visit: Yes Status: Resolved - Subjective Interval history: Patient seen and examined at bedside. Resting comfortably in bed and reports of feeling well however has had decreased appetite. Upon further questioning she states she has had an upset stomach with nausea for which she is not able to eat much. She is also noted to have an increased O2 demand overnight however there is no nursing report or documentation stating the reason for such behavior. Patient is saturating well on 3 L nasal cannula during the day and currently saturating well on 2.5 L, unclear of the overnight changes, as no change in her behavior has been reported. Patient has not required any Seroquel in the last 3 days. We will closely monitor respiratory status overnight and ask the nursing staff to document any changes in regards to O2 requirement. - Constitutional Vitals: Temp Pulse Resp BP Pulse Ox 97.6 F 70 16 178/71 99 10/20/16 07:15 10/20/16 07:15 10/20/16 07:15 10/20/16 07:15 10/20/16 07:15 General appearance: Present: cooperative, A&O X 3, pleasant, no acute distress, answers questions appropriately - Head Head exam: Present: atraumatic, normocephalic - Eye Eye exam: Present: normal appearance, conjuntiva pink, sclera anicteric - Respiratory Respiratory exam: Present: CTAB. Absent: accessory muscle use, rales, rhonchi, wheezes - Cardiovascular Cardiovascular exam: Present: RRR, +S1, +S2. Absent: diastolic murmur, gallop, rubs, systolic murmur - GI/Abdominal GI/Abdominal exam: Present: normal bowel sounds, soft, no peritoneal signs. Absent: distended, tenderness - Extremities Exam Extremities exam: Present: warm, radial pulses palpable and symetrical. Absent : calf tenderness, cyanotic, pedal edema Additional comments: s/p right BKA - Neurological Exam Neurological exam: Present: alert, oriented X3 - Psychiatric Psychiatric exam: Present: normal affect, normal mood Internal Medicine: Result - Labs CBC & Chem 7: 10/19/16 04:21 10/19/16 04:21 - ABG Interpretation ABG results: PT/INR, D-dimer PT 14.4 Seconds (9.4-12.1) H 10/11/16 06:12 D-Dimer 2183 ng/mLFEU (0-500) H 10/11/16 06:12 Consult Discharge Plan - Plan Referrals: NO,PCP [Primary Care Provider] - (Patient [facility] and will follow up with [facility] PCP)
[2016-10-20] MEDS ORDERED: Mag Hydrox/Al Hydrox/Simeth 30 ML UDC PO PRN (13:32)
[2016-10-21 05:06] LABS: Basophils % 0.3 %; Eosinophils % 0.3 %; Hematocrit 47.2 % (35.3-44.9); Hemoglobin 14.9 g/dL (11.5-15.4); Immature Granulocytes % 1.4 % (0-4); Lymphocytes # 1.3 K/mcL (0.6-4.6); Lymphocytes % 12.9 %; Mean Corpuscular HGB Conc 31.6 g/dL (31.6-35.5); Mean Corpuscular Hemoglobin 28.3 pg (28.0-33.3); Mean Corpuscular Volume 89.6 fL (83.0-100.0); Mean Platelet Volume 13.3 fL (9.4-12.4); Monocytes # 0.9 K/mcL (0.0-1.3); Monocytes % 8.6 %; Neutrophils # 7.9 K/mcL (1.6-8.9); Platelet Count 192 K/mcL (140-400); Red Blood Count 5.27 M/mcL (3.82-4.97); Red Cell Distribution Width 19.2 % (11.5-14.5); Segmented Neutrophils % 76.5 %
[2016-10-21 05:21] LABS: BUN/Creatinine Ratio 29 (6-26); Blood Urea Nitrogen 23 mg/dL (7-20); Calcium 8.7 mg/dL (8.6-10.8); Carbon Dioxide 29 mEq/L (19-29); Chloride 101 mEq/L (98-109); Glucose 69 mg/dL (70-99); Magnesium 1.9 mg/dL (1.6-2.6); Osmolality,Calculated 292 (280-300); Phosphorous 3.8 mg/dL (2.3-4.7); Potassium 3.6 mEq/L (3.5-4.5); Sodium 140 mEq/L (136-145); eGFR For African Americans > 60 (> 60); eGFR For Non-African Americans > 60 (> 60)
[2016-10-21] MEDS: *HR* Heparin 5,000 UNIT/ML VIAL SQ SCH (05:31)
[2016-10-21 07:19] VITALS: BP 153/68
--- NOTE | 2016-10-21 09:15 | Discharge Summary ---
Date of Encounter: 10/21/16 Time of Encounter: 08:30 - Discharge Diagnosis (1) Acute respiratory distress Priority: Primary Status: Resolved (2) Pneumonia Priority: Secondary Status: Acute Qualifiers: Pneumonia type: due to unspecified organism Laterality: right Lung location: lower lobe of lung Qualified Code(s): J18.1 - Lobar pneumonia, unspecified organism (3) Change in mental state Priority: Secondary Status: Resolved Qualifiers: Altered mental status type: unspecified Qualified Code(s): R41.82 - Altered mental status, unspecified (4) Acute bleeding Priority: Secondary Status: Resolved (5) CRISTI (acute kidney injury) Priority: Primary Status: Resolved (6) Dehydration Priority: Secondary Status: Resolved (7) Generalized weakness Priority: Secondary Status: Chronic (8) DVT prophylaxis Priority: Secondary Status: Acute (9) Hypothyroidism Priority: Secondary Status: Chronic Qualifiers: Hypothyroidism type: unspecified Qualified Code(s): E03.9 - Hypothyroidism , unspecified (10) Hypertension Priority: Secondary Status: Chronic Qualifiers: Hypertension type: essential hypertension Qualified Code(s): I10 - Essential (primary) hypertension (11) Hypomagnesemia Priority: Secondary Status: Resolved (12) Hypokalemia Priority: Secondary Status: Resolved - Discharge Medications Prescriptions: Furosemide [Lasix] 20 mg PO DAILY #20 tablet Quetiapine Fumarate [Seroquel] 12.5 mg PO HS PRN #10 tablet PRN Reason: anxiety/agitation Home Medications: 0.9 % Sodium Chloride 1,000 ml IV BID 10/08/16 [History] Acetaminophen [Tylenol] 650 mg PO Q4H PRN 10/08/16 [History] Albuterol Neb [Proventil Neb] 2.5 mg IH Q4HR PRN 10/08/16 [History] Ammonium Lactate 1 appl TP DAILY 10/08/16 [History] Aspirin Enteric Coated [Aspirin EC] 81 mg PO DAILY 10/08/16 [History] Clopidogrel [Plavix] 75 mg PO DAILY 10/08/16 [History] Esomeprazole Magnesium [Nexium] 40 mg PO DAILY 10/08/16 [History] Gabapentin [Neurontin] 300 mg PO TID 10/08/16 [History] GuaiFENesin/Dextromethorphan [Tussin Dm Syrup] 10 ml PO Q4H PRN 10/08/16 [ History] Hydraguard 1 appl TP BID 10/08/16 [History] Hydrocortisone 1% CREAM [Cortaid] 1 appl TP BID PRN 10/08/16 [History] Iron Polysaccharide Complex [Ferrex 150] 150 mg PO DAILY 10/08/16 [History] Ketoconazole Shampoo [Nizoral Shampoo] 1 appl TP FR 10/08/16 [History] Levothyroxine [Synthroid] 50 mcg PO 0630 10/08/16 [History] Lisinopril [Zestril] 40 mg PO DAILY 10/08/16 [History] Loperamide HCl [Imodium A-D] 2 - 4 mg PO Q8H PRN MDD 12 mg 10/08/16 [History] Metoprolol XL (24 HR) Succ [Toprol Xl] 12.5 mg PO DAILY 10/08/16 [History] Ondansetron HCl [Zofran] 4 mg PO Q6H PRN 10/08/16 [History] Ondansetron ODT [Zofran ODT] 4 mg SL Q4HR PRN 10/08/16 [History] Oxygen 1 each .ROUTE AD 10/08/16 [History] Pravastatin Sodium [Pravachol] 20 mg PO HS 10/08/16 [History] S.boulardii/B.coagulans/Fos [Diff-Stat 471 mg Capsule] 471 mg PO BID 10/08/16 [ History] Sertraline [Zoloft] 25 mg PO DAILY 10/08/16 [History] Sotalol [Betapace] 40 mg PO BID 10/08/16 [History] Tramadol HCl [Ultram] 50 mg PO Q6H PRN 10/08/16 [History] Tramadol HCl [Ultram] 100 mg PO Q6H PRN 10/08/16 [History] Triamcinolone Acet 0.1% CRM [Kenalog] 1 appl TP BID PRN 10/08/16 [History] Amlodipine [Norvasc] 10 mg PO DAILY tablet 10/21/16 [Rx] Furosemide [Lasix] 20 mg PO DAILY #20 tablet 10/21/16 [Rx] Ipratropium/Albuterol Neb [Duoneb] 3 ml IH [id number] PRN #0 inhsol 10/21/16 [Rx] Quetiapine Fumarate [Seroquel] 12.5 mg PO HS PRN #10 tablet 10/21/16 [Rx] Tamsulosin [Flomax] 0.4 mg PO DAILY capsule 10/21/16 [Rx] Allergies/Adverse Reactions: Allergies diphenhydramine [From Benadryl] Allergy (Verified 10/08/16 16:19) See Comments ibuprofen Allergy (Verified 10/08/16 16:19) See Comments morphine Allergy (Verified 10/08/16 16:19) See Comments sulfamethoxazole [From Bactrim] Allergy (Verified 10/08/16 16:19) See Comments trimethoprim [From Bactrim] Allergy (Verified 10/08/16 16:19) See Comments Date of admission: 10/09/16 00:48 Primary care physician: PCP NO Consults: 10/10/16 09:57 Consult to Oncology Hematology [CONS] Routine Consulting Provider: Kacy Whalen Reason for Consult: LLE DVT Call Completed: Yes 10/11/16 09:57 Consult to Vascular Surgery [CONS] Stat Consulting Provider: Vascular Surgery Anne Reason for Consult: ARTERY NICKED Call Completed: Yes 10/18/16 09:21 PT [Consult to Physical Therapy] [CONS] Routine Comment: Evaluate, develop and implement POC Reason for Consult: Patient had previously refused evaluation, much more alert and cooperative. 10/18/16 09:23 OT [Consult to Occupational Therapy] [CONS] Routine Comment: Evaluate, develop and implement POC Reason for Consult: Patient had previously refused evaluation, much more alert and cooperative. Discharging clinician: Hue Tariq Anticipated date of discharge: 10/21/16 - Patient Status Disposition: Transfer SNF Condition: Good Functional capacity at discharge: uses cane/walker Overall status at discharge: patient is back to baseline - Discharge Instructions Follow Up With: NO,PCP [Primary Care Provider] - (Patient from [facility] and will follow up with [facility] PCP) Additional Instructions: Please follow up with your primary care physician within five days after your discharge from the hospital. Please closely monitor your blood pressure. Amlodipine 10mg once a day has been added to your home medications. Please continue O2 supplementation at all times to maintain O2 saturation of 89- 92%. Seroquel 12.5mg qHS as needed for anxiety/agitation has been added to your home medications. Take this medication as needed. Resume home medications as prescribed by your primary care physician. - Diet and Activity Activity: as per physical therapy, wear oxygen at all times Diet: low salt diet Hospital course: Ms. Garcia is a 75 year old female with PMH of CVA, CHF, s/p rtBKA, HTN, GERD, CKD, thyroid disease who was admitted for management of CRISTI secondary to dehydration. She was started on IV fluids to which she responded appropriately with resolution of her CRISTI. Her hospital course was further complicated by acute respiratory failure secondary to volume overload, COPD exacerbation, and PNA. She was started on IV diuresis, systemic steroids, and IV abx. She finished her abx and steroid course and responded appropriately to therapy. Her mental status is back to baseline however she continues to refuse much PO intake. She has been also refusing physical therapy and has been bed bound. Patient is AAO x 3 and understands her condition and continues to refuse physical therapy. She has history of COPD and is on home oxygen however does not always wear it. At this time she is saturating well on 2.5L nasal cannula. She is hemodynamically stable and will be discharged back to ID with oxygen. She is to follow up with Primary care physician after discharge. Patient demonstrates understanding of her diagnosis and agree with the discharge care and plan. - Time Spent with Patient Total time spent providing and/or coordinating discharge services: Greater than 30 minutes - Constitutional Vitals: Temp Pulse Resp BP Pulse Ox 97.7 F 59 17 153/68 97 10/21/16 07:18 10/21/16 07:18 10/21/16 07:18 10/21/16 07:18 10/21/16 07:18 General appearance: Present: cooperative, A&O X 3, pleasant, no acute distress, answers questions appropriately - Head Head exam: Present: atraumatic, normocephalic - Eye Eye exam: Present: normal appearance, conjuntiva pink, sclera anicteric - Respiratory Respiratory exam: Present: CTAB. Absent: accessory muscle use, rales, rhonchi, wheezes - Cardiovascular Cardiovascular exam: Present: RRR, +S1, +S2. Absent: diastolic murmur, gallop, rubs, systolic murmur - GI/Abdominal GI/Abdominal exam: Present: normal bowel sounds, soft, no peritoneal signs. Absent: distended, tenderness - Extremities Exam Extremities exam: Present: warm, radial pulses palpable and symetrical. Absent : calf tenderness, cyanotic, pedal edema Additional comments: s/p right BKA - Neurological Exam Neurological exam: Present: alert, oriented X3 - Psychiatric Psychiatric exam: Present: normal affect, normal mood
--- NOTE | 2016-10-21 09:27 | Physician Discharge Referral ---
ExtendedCare Referral Info Transfer To: [facility] Provider in Charge after Transfer: PCP - Diagnosis (1) Acute respiratory distress Priority: Secondary Status: Resolved (2) Pneumonia Priority: Secondary Status: Acute (3) Change in mental state Priority: Secondary Status: Resolved (4) Acute bleeding Priority: Secondary Status: Resolved (5) CRISTI (acute kidney injury) Priority: Primary Status: Resolved (6) Dehydration Priority: Secondary Status: Resolved (7) Generalized weakness Priority: Secondary Status: Chronic (8) DVT prophylaxis Priority: Secondary Status: Acute (9) Hypothyroidism Priority: Secondary Status: Chronic (10) Hypertension Priority: Secondary Status: Chronic (11) Hypomagnesemia Priority: Secondary Status: Resolved (12) Hypokalemia Priority: Secondary Status: Resolved - Transfer Medications Prescriptions: Furosemide [Lasix] 20 mg PO DAILY #20 tablet Quetiapine Fumarate [Seroquel] 12.5 mg PO HS PRN #10 tablet PRN Reason: anxiety/agitation Home Medications: 0.9 % Sodium Chloride 1,000 ml IV BID 10/08/16 [History] Acetaminophen [Tylenol] 650 mg PO Q4H PRN 10/08/16 [History] Albuterol Neb [Proventil Neb] 2.5 mg IH Q4HR PRN 10/08/16 [History] Ammonium Lactate 1 appl TP DAILY 10/08/16 [History] Aspirin Enteric Coated [Aspirin EC] 81 mg PO DAILY 10/08/16 [History] Clopidogrel [Plavix] 75 mg PO DAILY 10/08/16 [History] Esomeprazole Magnesium [Nexium] 40 mg PO DAILY 10/08/16 [History] Gabapentin [Neurontin] 300 mg PO TID 10/08/16 [History] GuaiFENesin/Dextromethorphan [Tussin Dm Syrup] 10 ml PO Q4H PRN 10/08/16 [ History] Hydraguard 1 appl TP BID 10/08/16 [History] Hydrocortisone 1% CREAM [Cortaid] 1 appl TP BID PRN 10/08/16 [History] Iron Polysaccharide Complex [Ferrex 150] 150 mg PO DAILY 10/08/16 [History] Ketoconazole Shampoo [Nizoral Shampoo] 1 appl TP FR 10/08/16 [History] Levothyroxine [Synthroid] 50 mcg PO 0630 10/08/16 [History] Lisinopril [Zestril] 40 mg PO DAILY 10/08/16 [History] Loperamide HCl [Imodium A-D] 2 - 4 mg PO Q8H PRN MDD 12 mg 10/08/16 [History] Metoprolol XL (24 HR) Succ [Toprol Xl] 12.5 mg PO DAILY 10/08/16 [History] Ondansetron HCl [Zofran] 4 mg PO Q6H PRN 10/08/16 [History] Ondansetron ODT [Zofran ODT] 4 mg SL Q4HR PRN 10/08/16 [History] Oxygen 1 each .ROUTE AD 10/08/16 [History] Pravastatin Sodium [Pravachol] 20 mg PO HS 10/08/16 [History] S.boulardii/B.coagulans/Fos [Diff-Stat 471 mg Capsule] 471 mg PO BID 10/08/16 [ History] Sertraline [Zoloft] 25 mg PO DAILY 10/08/16 [History] Sotalol [Betapace] 40 mg PO BID 10/08/16 [History] Tramadol HCl [Ultram] 50 mg PO Q6H PRN 10/08/16 [History] Tramadol HCl [Ultram] 100 mg PO Q6H PRN 10/08/16 [History] Triamcinolone Acet 0.1% CRM [Kenalog] 1 appl TP BID PRN 10/08/16 [History] Amlodipine [Norvasc] 10 mg PO DAILY tablet 10/21/16 [Rx] Furosemide [Lasix] 20 mg PO DAILY #20 tablet 10/21/16 [Rx] Ipratropium/Albuterol Neb [Duoneb] 3 ml IH [id number] PRN #0 inhsol 10/21/16 [Rx] Quetiapine Fumarate [Seroquel] 12.5 mg PO HS PRN #10 tablet 10/21/16 [Rx] Tamsulosin [Flomax] 0.4 mg PO DAILY capsule 10/21/16 [Rx] Allergies/Adverse Reactions: Allergies diphenhydramine [From Benadryl] Allergy (Verified 10/08/16 16:19) See Comments ibuprofen Allergy (Verified 10/08/16 16:19) See Comments morphine Allergy (Verified 10/08/16 16:19) See Comments sulfamethoxazole [From Bactrim] Allergy (Verified 10/08/16 16:19) See Comments trimethoprim [From Bactrim] Allergy (Verified 10/08/16 16:19) See Comments - Respiratory Orders Oxygen / L per min (3-4L/NC to maintaine O2 saturation: 89-92%) Smoking Cessation: Smoking cessation has been advised. For more information, call the [employer] Quit Line at 0-718-URJM-NOW. - Rehabiliation Orders Other: Please follow up with your primary care physician within five days after your discharge from the hospital. Please closely monitor your blood pressure. Amlodipine 10mg once a day has been added to your home medications. Please continue O2 supplementation at all times to maintain O2 saturation of 89- 92%. Seroquel 12.5mg qHS as needed for anxiety/agitation has been added to your home medications. Take this medication as needed. Resume home medications as prescribed by your primary care physician. Patient requires assistance with feedings CERTIFICATION: I certify that the transfer of the above named patient to an Extended Care Facility is necessary for the continuing treatment of the diagnosis listed. The above information is true and accurate reflection of patient's current condition. Confidential - Redisclosure prohibited without a patient's written consent.
[2016-10-21] MEDS: Iron Polysaccharide Complex 150 MG CAPSULE PO SCH (09:30)
[2016-10-21] MEDS: Metoprolol XL (24 HR) Succ 25 MG TAB.ER.24H PO SCH (09:30)
[2016-10-21] MEDS: predniSONE 20 MG TABLET PO SCH (09:30)
[2016-10-21] MEDS: Furosemide 20 MG TABLET PO SCH (09:30)
[2016-10-21] MEDS: Lisinopril 20 MG TABLET PO SCH (09:30)
[2016-10-21] MEDS: Nystatin POWDER 30 GM BOTTLE TP SCH (09:30)
[2016-10-21] MEDS: amLODIPine 5 MG TABLET PO SCH (09:30)
[2016-10-21] MEDS: Aspirin Enteric Coated 81 MG Tablet PO SCH (09:30)
== END 2016-10-21 12:00 | DRG 682 ==
LOC: EMEROO 16:08 → 2ANU 16:08
PROVIDERS: ADMIT Family Medicine; ATTEND Internal Medicine